=== PATIENT | female | born 1950 | race Caucasian/White ===

== ENCOUNTER → 2016-09-06 | Outpatient (CLI) | payer BC, MEDICARE, OTHER ==
[2016-09-06 12:13] LABS: ALT 51 U/L (9-52); AST 38 U/L (14-36); Alkaline Phosphatase 84 U/L (38-126); Anion Gap 13 mmol/L; Blood Urea Nitrogen 23 mg/dL (7-17); Calcium 10.1 mg/dL (8.4-10.2); Carbon Dioxide 30 mmol/L (22-30); Chloride 102 mmol/L (98-107); Cholesterol 129 mg/dL (<200); Glucose 207 mg/dL (74-99); HDL Cholesterol 37 mg/dL (40-60); Non-African American GFR(MDRD) 58 (>60 ml/min/1.73 sqM); Potassium 5.1 mmol/L (3.5-5.1); Sodium 145 mmol/L (137-145); Triglycerides 154 mg/dL (<150)
== END | disposition home or self-care (01) ==
LOC: LABWHC1 10:43
PROVIDERS: ATTEND Internal Medicine Endocrinology, Diabetes & Metabolism
DX: E11.65 Type 2 diabetes mellitus with hyperglycemia (principal)
CPT/HCPCS: 36415; 80053; 80061; 82043

== ENCOUNTER → 2017-05-30 | Outpatient (CLI) | payer BC, MEDICARE, OTHER ==
[2017-05-30 10:19] LABS: ALT 34 U/L (9-52); AST 22 U/L (14-36); Alkaline Phosphatase 86 U/L (38-126); Anion Gap 12 mmol/L; Blood Urea Nitrogen 21 mg/dL (7-17); Calcium 9.6 mg/dL (8.4-10.2); Carbon Dioxide 25 mmol/L (22-30); Chloride 108 mmol/L (98-107); Cholesterol 134 mg/dL (<200); Glucose 185 mg/dL (74-99); HDL Cholesterol 53 mg/dL (40-60); Non-African American GFR(MDRD) >60 (>60 ml/min/1.73 sqM); Potassium 4.7 mmol/L (3.5-5.1); Sodium 145 mmol/L (137-145); Total Bilirubin 0.3 mg/dL (0.2-1.3); Total Protein 7.8 g/dL (6.3-8.2)
[2017-05-30 17:32] LABS: Urine Creatinine 90.1 mg/dL
== END | disposition home or self-care (01) ==
LOC: LABWHC1 09:32
PROVIDERS: ATTEND Internal Medicine Endocrinology, Diabetes & Metabolism
DX: E11.65 Type 2 diabetes mellitus with hyperglycemia (principal)
CPT/HCPCS: 36415; 80053; 80061; 82043; 82570

== ENCOUNTER → 2018-03-16 | Outpatient (CLI) | payer BC, MEDICARE ==
[2018-03-16 08:39] LABS: Albumin 4.2 g/dL (3.5-5.0); Calcium 9.6 mg/dL (8.4-10.2); Potassium 4.9 mmol/L (3.5-5.1); Total Bilirubin 0.7 mg/dL (0.2-1.3); Total Protein 6.9 g/dL (6.3-8.2)
[2018-03-16 13:17] LABS: Hemoglobin A1C 7.5 % (4.0-6.0)
== END | disposition home or self-care (01) ==
LOC: LABWHC1 06:59
PROVIDERS: ATTEND Internal Medicine Endocrinology, Diabetes & Metabolism
DX: E11.65 Type 2 diabetes mellitus with hyperglycemia (principal)
CPT/HCPCS: 36415; 80053; 80061; 82043; 82570; 83036

== ENCOUNTER → 2018-06-26 | Outpatient (CLI) | payer BC, MEDICARE ==
--- NOTE | 2018-06-26 20:02 | MR ---
EXAMINATION TYPE: MR knee LT wo con DATE OF EXAM: 06/26/2018 COMPARISON: None HISTORY: Left knee swelling, pain, clicking, for several years TECHNIQUE: Multiplanar, multisequence imaging of the left knee is performed without IV contrast. FINDINGS: MEDIAL MENISCUS: There is a radial tear of the posterior horn of the medial meniscus at its free edge . There is slight posterior horn meniscal myxoid degeneration as there is increased signal throughout . Anterior horn is intact. LATERAL MENISCUS: Anterior and posterior horns are intact without tear. CRUCIATE LIGAMENTS: The anterior and posterior cruciate ligaments are intact and unremarkable. COLLATERAL LIGAMENTS: The medial collateral ligament and lateral collateral ligament complex are inta ct and unremarkable. EXTENSOR MECHANISM: Visualized quadriceps and patellar tendons are intact. EFFUSION: There is a small minimally complex suprapatellar joint effusion indicative of synovitis. T here is also a thickened superior plica. POPLITEAL CYST: No popliteal/friend cyst. TRICOMPARTMENT SPACES: There are small tricompartmental marginal osteophytes and mild medial compartm ent joint space narrowing as well as patellofemoral compartment joint space narrowing in keeping with mild to moderate arthrosis. CARTILAGE: There are focal fissures within the trochlea at the medial aspect of both the lateral and medial facets with full-thickness cartilaginous defect of the lateral facet measuring 6 mm. There is thinning and signal heterogeneity of the patellofemoral cartilage and focal fissure with underlying f ocal bone marrow edema of the medial facet. There is full-thickness cartilaginous loss of the weightbearing surface of the medial femoral condyle measuring 1.8 cm with underlying foci of bone marrow edema and the medial femoral condyle. Within th e lateral femoral condyle there is a focal partial-thickness cartilaginous defect measuring 6 mm. Gen eralized thinning and signal heterogeneity is seen of the remainder of the lateral compartment cartil age. BONE MARROW SIGNAL: No focal abnormal marrow signal is appreciated. OTHER: There is a very small degree of prepatellar and infrapatellar subcutaneous soft tissue swelli ng. IMPRESSION: 1. Small radial tear of the posterior horn of the medial meniscus at its free edge with myxoid degene ration of the posterior horn. 2. Gtaa-bh-utglrwtb tricompartmental arthrosis with tricompartmental chondrosis including full-thickn ess cartilaginous defect of the weightbearing surface of the medial femoral condyle measuring 1.8 cm with underlying foci of bone marrow edema/subchondral cystic change. Focal fissuring is seen within t he trochlea and lateral patellar facet with partial thickness cartilaginous defect of the lateral fem oral condyle. 3. Small complex suprapatellar joint effusion indicative of synovitis. Additionally there is a thicke dio superior plica.
== END | disposition home or self-care (01) ==
LOC: RADMRIMAIN 10:08
PROVIDERS: ATTEND Orthopaedic Surgery
DX: S83.242A Other tear of medial meniscus, current injury, left knee, initial encounter (principal); M17.12 Unilateral primary osteoarthritis, left knee; M94.8X8 Other specified disorders of cartilage, other site

== ENCOUNTER 2018-08-19 08:20 | Day surgery (SDC) | payer BC, MEDICARE ==
[2018-08-17 10:43] VITALS: BMI 29.0
--- NOTE | 2018-08-18 16:04 | HP ---
HISTORY AND PHYSICAL DATE OF SURGERY: 08/19/2018 Cindy Us is a 67-year-old patient seen with progressive left knee pain. After having treatment options discussed, she elected to proceed with left knee arthroscopy. Consent regarding the procedure was obtained. PAST MEDICAL HISTORY: 1. Hypertension. 2. Tmc-bmaucin-muugpvkza diabetes. PAST SURGICAL HISTORY: Carpal tunnel release. DAILY MEDICATIONS: 1. Amlodipine. 2. Atenolol. 3. Atorvastatin. 4. Glipizide. 5. Metformin. ALLERGIES: NONE REPORTED. SOCIAL HISTORY: She smokes a half pack of cigarettes daily. PHYSICAL EVALUATION OF THE LEFT KNEE: Her range of motion is 0 to 125 degrees. Tenderness, medial joint line. Positive medial Phill's. Patellar crepitus. Ligaments stable. Hip rotation without pain. Distal neurovascular exam is intact. LEFT KNEE RADIOGRAPHS: Left knee radiographs revealed moderate medial and patellofemoral compartment osteoarthritis. An MRI of the left knee revealed a medial meniscal tear, osteoarthritis and joint effusion. IMPRESSION: Internal derangement of the left knee with medial meniscal tear. PLAN: Left knee arthroscopy with partial meniscectomy and debridement. MMODL / IJN: [id number] /
[~2018-08-19 08:20] MED LIST: DEXAMETHASONE SOD PHOSPHATE 10 MG/ML 1 ML VIAL IV ONE; HYDROmorphone 0.5 MG/0.5 ML SYRINGE IVP PRN; LIDOCAINE 1% 20 ML VIAL (10MG/ML) FOR IV START INTRADERMA PRN; ONDANSETRON 4 MG/2 ML VIAL IVP ONE; SCOPOLAMINE 1.5MG/72HR PATCH TRANSDERM ONE; ceFAZolin IN SWFI 2 GM/20 ML SYRINGE IVP ONE
[2018-08-19] MEDS: LACTATED RINGERS 1,000 ML IV SCH ×2 (08:58→10:14)
[2018-08-19 09:10] LABS: Glucose,Whole Blood 182 mg/dL (75-99)
[2018-08-19] MEDS ORDERED: fentaNYL (PF) 50 MCG/ML 2 ML AMP ONE (10:15)
[2018-08-19] MEDS ORDERED: PROPOFOL 10 MG/ML 20 ML VIAL IV ONE (10:15)
[2018-08-19] MEDS ORDERED: LIDOCAINE 1% INJ 10MG/ML (20 ML MDV) ONE (10:15)
[2018-08-19] MEDS ORDERED: BUPIVACAIN-EPI 0.25%-1:200,000 30 ML VIAL SQ ONE (10:15)
[2018-08-19] MEDS ORDERED: SUCCINYLCHOLINE CHLORIDE 100 MG/5 ML SYR IV ONE (10:15)
[2018-08-19] MEDS ORDERED: KETOROLAC 30 MG/ML 1 ML VIAL ONE (10:15)
[2018-08-19] MEDS ORDERED: MIDAZOLAM 2 MG/2 ML VIAL ONE (10:15)
[2018-08-19] MEDS ORDERED: LACTATED RINGERS 1,000 ML IV ONE (10:46)
[2018-08-19 11:00] VITALS: RESP 16; TEMP 96.9
--- NOTE | 2018-08-19 11:00 | P.OP ---
Date of Procedure: 08/19/18 Preoperative Diagnosis: Internal derangement left knee Postoperative Diagnosis: 1. Medial meniscal tear left knee 2. Grade 3 chondromalacia medial femoral condyle left knee 3. Grade 4 chondromalacia medial tibial plateau left knee 4. Grade 3/4 chondromalacia femoral sulcus left knee 5. Medial plica left knee 6. Reactive synovitis medial, lateral and suprapatellar compartments left knee Procedure(s) Performed: 1. Arthroscopic partial medial meniscectomy left knee 2. Arthroscopic chondroplasty medial femoral condyle left knee 3. Arthroscopic chondroplasty femoral sulcus left knee 4. Arthroscopic resection medial plica left knee 5. Arthroscopic partial synovectomy medial, lateral and suprapatellar compartments left knee Anesthesia: GETA, local Surgeon: Jagdish Edgar Estimated Blood Loss (ml): 5 Pathology: none sent Condition: stable Disposition: PACU Indications for Procedure: 67-year-old patient seen with progressive left knee. After treatment options were discussed, she elected to proceed with arthroscopy. Operative Findings: see description of procedure Description of Procedure: Patient was taken to the operative suite. Patient underwent a general anesthetic by the department of anesthesia. Patient was given preoperative antibiotics. The left lower extremity was placed in a well-padded arthroscopic leg escobar. The left leg was prepped and draped in the normal sterile orthopedic fashion. A lateral parapatellar and suprapatellar incision was made. Trochars were inserted. Arthroscopy was initiated. Suprapatellar pouch revealed diffuse thick reactive synovitis. The patellofemoral joint appeared to articulate congruently. There was grade 3 chondromalacia changes of the femoral sulcus with large osteochondral flap tears.. The scope was guided into the medial gutter. No loose bodies were identified however there was a large medial plica which did seem to impinge along the medial femoral condyle with range of motion. The scope was then guided into the medial compartment. A medial parapatellar incision was made. Trocar inserted followed by probe. There was a small radial tear involving the posterior horn of the medial meniscus. There were grade 3 chondromalacia changes of the medial femoral condyle with some osteochondral flap tears. There were grade 4 chondral moist changes of the medial tibial plateau with 2 distinct areas of exposed bone. There was thick reactive synovitis anteriorly. I performed a partial medial meniscectomy down to stable tissue. I performed a chondroplasty of the medial femoral condyle down to stable tissue. I performed a partial synovectomy decompressing the reactive synovitis anteriorly. The residual meniscus was found to be stable. The residual osteochondral surface of the medial femoral condyle was stable. There was good decompression of the synovitis. Scope and probe were then guided into the intercondylar notch. Cruciates were identified , probed and found to be stable. The scope and probe were then guided into lateral compartment. Lateral meniscus was probed and found to be stable. There were mild grade 1 chondromalacia changes of the lateral femoral condyle with no osteochondral tears present. There was reactive synovitis anteriorly. I introduced a motorized shaver and performed a partial synovectomy decompressing the reactive synovitis a lateral compartment. There was good decompression of synovitis. The scope was in guided back into the suprapatellar compartment. I introduced a motorized shaver into the suprapatellar compartment. I debrided some piecemeal fragments of meniscus I encountered. I performed a chondroplasty of the femoral sulcus down to stable tissue. I performed a partial synovectomy decompressing the reactive synovitis. The residual osteochondral surface was stable however there was areas of grade 3 approaching grade 4 chondromalacia. There was good decompression of the synovitis. Instruments were now removed from the joint. The joint was infiltrated with .25% Marcaine. Steri-Strips were applied to the portal sites. Sterile dressings were applied. The patient was placed into a SADE hose. No tourniquet was utilized. The patient was awakened, transferred to a bed and taken to recovery stable satisfactory condition.
[2018-08-19 11:29] LABS: Glucose,Whole Blood 243 mg/dL (75-99)
[2018-08-19] MEDS ORDERED: HYDROcodone/APAP 5-325MG 1 EACH TAB PO ONE (12:06)
[2018-08-19 12:32] VITALS: BP 128/63; PULSE 59
== END 2018-08-19 12:44 | disposition home or self-care (01) ==
LOC: OR 08:20
PROVIDERS: ATTEND Orthopaedic Surgery
DX: S83.242A Other tear of medial meniscus, current injury, left knee, initial encounter (principal); X58.XXXA Exposure to other specified factors, initial encounter; M94.262 Chondromalacia, left knee; M67.52 Plica syndrome, left knee; M65.862 Other synovitis and tenosynovitis, left lower leg; I10 Essential (primary) hypertension; E78.5 Hyperlipidemia, unspecified; E11.9 Type 2 diabetes mellitus without complications; Z79.84 Long term (current) use of oral hypoglycemic drugs; Z79.899 Other long term (current) drug therapy; F17.210 Nicotine dependence, cigarettes, uncomplicated
CPT/HCPCS: 29881; J2250; J1100; J2405; J2001; J3010; J1885; J0330; J2704; J0690

== ENCOUNTER → 2018-09-22 | Outpatient (CLI) | payer BC, MEDICARE ==
--- NOTE | 2018-09-23 09:54 | MM ---
Reason for exam: screening (asymptomatic). Last mammogram was performed 5 years and 3 months ago. History: Patient is postmenopausal and has history of other cancer at age 67. Took estrogen for 25 years beginning at age 33. Took progesterone for 25 years beginning at age 33. Physical Findings: A clinical breast exam by your physician is recommended on an annual basis and results should be correlated with mammographic findings. MG 3D Screening Mammo W/Cad Bilateral CC and MLO view(s) were taken. Prior study comparison: July 01, 2013, bilateral digital screening mammo w/CAD. January 30, 2009, bilateral diagnostic digital mammog. There are scattered fibroglandular densities. Benign oil cysts anteriorly in the breasts. No significant changes when compared with prior studies. ASSESSMENT: Negative, BI-RAD 1 RECOMMENDATION: Routine screening mammogram of both breasts in 1 year.
== END | disposition home or self-care (01) ==
LOC: RADMAMWWP 08:11
PROVIDERS: ATTEND Family Medicine
DX: Z12.31 Encounter for screening mammogram for malignant neoplasm of breast (principal)
CPT/HCPCS: 77063; 77067

== ENCOUNTER 2018-12-17 21:50 | Observation (INO) | payer BC, MEDICARE ==
[2018-12-17] MEDS ORDERED: SODIUM CHLORIDE 0.9% 1,000 ML IV STA (23:10)
[2018-12-17] MEDS ORDERED: MORPHINE SULFATE 4 MG/ML SYRINGE IV STA (23:10)
--- NOTE | 2018-12-17 23:13 | ED ---
Back Pain HPI - General Chief Complaint: Back Pain/Injury Stated Complaint: Abd pain Time Seen by Provider: 12/17/18 23:10 Source: patient Limitations: no limitations - Related Data Home Medications Medication Instructions Recorded Confirmed Atenolol [Tenormin] 50 mg PO BID 08/17/18 12/17/18 Atorvastatin [Lipitor] 40 mg PO DAILY 08/17/18 12/17/18 amLODIPine BES/OLMESARTAN MED 1 tab PO BID 08/17/18 12/17/18 [amLODIPine BES/OLMESARTAN MED 5-20 mg] glipiZIDE [Glucotrol] 5 mg PO AC-BID 08/17/18 12/17/18 metFORMIN HCL 1,000 mg PO BID 08/17/18 12/17/18 Trulicity(Unknown Dose) 20 units SQ QAM 12/17/18 12/17/18 Allergies Allergy/AdvReac Type Severity Reaction Status Date / Time No Known Allergies Allergy Verified 12/17/18 23:13 Review of Systems ROS Statement: Those systems with pertinent positive or pertinent negative responses have been documented in the HPI. ROS Other: All systems not noted in ROS Statement are negative. Past Medical History Past Medical History: Cancer, Diabetes Mellitus, Hyperlipidemia, Hypertension Additional Past Medical History / Comment(s): BLADDER CANCER-HAD INTRABLADDER CHEMO 09/16/18 History of Any Multi-Drug Resistant Organisms: None Reported Past Surgical History: Hysterectomy, Orthopedic Surgery, Tubal Ligation Additional Past Surgical History / Comment(s): BLADDER CANCER SURGERY. COLONOSCOPY. BILAT CATARACT REMOVAL. LT KNEE SCOPE Past Anesthesia/Blood Transfusion Reactions: No Reported Reaction Past Psychological History: No Psychological Hx Reported Smoking Status: Former smoker Past Alcohol Use History: None Reported Past Drug Use History: None Reported - Past Family History Mother Family Medical History: No Reported History General Exam Limitations: no limitations Course Vital Signs 12/17/18 22:24 Temperature 99.4 F Pulse Rate 77 Respiratory 18 Rate Blood Pressure 147/78 O2 Sat by Pulse 97 Oximetry Medical Decision Making - Lab Data Result diagrams: 12/17/18 23:19 12/17/18 23:19 Lab Results 12/17/18 12/17/18 12/17/18 Range/Units 23:19 23:19 23:19 WBC (3.8-10.6) k/uL RBC (3.80-5.40) m/uL Hgb (11.4-16.0) gm/dL Hct (34.0-46.0) % MCV (80.0-100.0) fL MCH (25.0-35.0) pg MCHC (31.0-37.0) g/dL RDW (11.5-15.5) % Plt Count (150-450) k/uL Neutrophils % % Lymphocytes % % Monocytes % % Eosinophils % % Basophils % % Neutrophils # (1.3-7.7) k/uL Lymphocytes # (1.0-4.8) k/uL Monocytes # (0-1.0) k/uL Eosinophils # (0-0.7) k/uL Basophils # (0-0.2) k/uL Hypochromasia Anisocytosis Microcytosis PT 9.8 (9.0-12.0) sec INR 0.9 (<1.2) APTT 22.5 (22.0-30.0) sec Sodium (137-145) mmol/L Potassium (3.5-5.1) mmol/L Chloride (98-107) mmol/L Carbon Dioxide (22-30) mmol/L Anion Gap mmol/L BUN (7-17) mg/dL Creatinine (0.52-1.04) mg/dL Est GFR (CKD-EPI)AfAm (>60 ml/min/1.73 sqM) Est GFR (CKD-EPI)NonAf (>60 ml/min/1.73 sqM) Glucose (74-99) mg/dL Plasma Lactic Acid Guillermo 1.6 (0.7-2.0) mmol/L Calcium (8.4-10.2) mg/dL Total Bilirubin (0.2-1.3) mg/dL AST (14-36) U/L ALT (9-52) U/L Alkaline Phosphatase (38-126) U/L Creatine Kinase (30-135) U/L Troponin I <0.012 (0.000-0.034) ng/mL Total Protein (6.3-8.2) g/dL Albumin (3.5-5.0) g/dL Amylase (30-110) U/L Lipase (23-300) U/L 12/17/18 12/17/18 Range/Units 23:19 23:19 WBC 12.9 H (3.8-10.6) k/uL RBC 4.71 (3.80-5.40) m/uL Hgb 10.3 L (11.4-16.0) gm/dL Hct 33.9 L (34.0-46.0) % MCV 71.9 L (80.0-100.0) fL MCH 21.8 L (25.0-35.0) pg MCHC 30.3 L (31.0-37.0) g/dL RDW 18.4 H (11.5-15.5) % Plt Count 282 (150-450) k/uL Neutrophils % 77 % Lymphocytes % 16 % Monocytes % 5 % Eosinophils % 1 % Basophils % 0 % Neutrophils # 9.9 H (1.3-7.7) k/uL Lymphocytes # 2.0 (1.0-4.8) k/uL Monocytes # 0.6 (0-1.0) k/uL Eosinophils # 0.2 (0-0.7) k/uL Basophils # 0.1 (0-0.2) k/uL Hypochromasia Moderate Anisocytosis Slight Microcytosis Marked PT (9.0-12.0) sec INR (<1.2) APTT (22.0-30.0) sec Sodium 138 (137-145) mmol/L Potassium 4.7 (3.5-5.1) mmol/L Chloride 105 (98-107) mmol/L Carbon Dioxide 24 (22-30) mmol/L Anion Gap 9 mmol/L BUN 21 H (7-17) mg/dL Creatinine 0.85 (0.52-1.04) mg/dL Est GFR (CKD-EPI)AfAm 82 (>60 ml/min/1.73 sqM) Est GFR (CKD-EPI)NonAf 71 (>60 ml/min/1.73 sqM) Glucose 128 H (74-99) mg/dL Plasma Lactic Acid Guillermo (0.7-2.0) mmol/L Calcium 10.2 (8.4-10.2) mg/dL Total Bilirubin 0.5 (0.2-1.3) mg/dL AST 18 (14-36) U/L ALT 22 (9-52) U/L Alkaline Phosphatase 102 (38-126) U/L Creatine Kinase 55 (30-135) U/L Troponin I (0.000-0.034) ng/mL Total Protein 7.6 (6.3-8.2) g/dL Albumin 4.4 (3.5-5.0) g/dL Amylase 62 (30-110) U/L Lipase 418 H (23-300) U/L Disposition Clinical Impression: Chest pain Disposition: HOME SELF-CARE Condition: Good Is patient prescribed a controlled substance at d/c from ED?: No Referrals: Vishal Nixon DO [Primary Care Provider] - 1-2 days
[2018-12-17 23:54] LABS: Anisocytosis Slight; Basophils # (A) 0.1 k/uL (0-0.2); Basophils % (A) 0 %; Eosinophils # (A) 0.2 k/uL (0-0.7); Eosinophils % (A) 1 %; HCT 33.9 % (34.0-46.0); HGB 10.3 gm/dL (11.4-16.0); Hypochromasia Moderate; Lymphocytes % (A) 16 %; MCH 21.8 pg (25.0-35.0); MCHC 30.3 g/dL (31.0-37.0); MCV 71.9 fL (80.0-100.0); Mean Platelet Volume 8.3; Microcytosis Marked; Monocytes # (A) 0.6 k/uL (0-1.0); Monocytes % (A) 5 %; Neutrophils # (A) 9.9 k/uL (1.3-7.7); Neutrophils % (A) 77 %; Platelet Count 282 k/uL (150-450); RBC 4.71 m/uL (3.80-5.40); RDW 18.4 % (11.5-15.5); WBC 12.9 k/uL (3.8-10.6)
[2018-12-17 23:57] LABS: INR 0.9 (<1.2); Partial Thromboplastin Time 22.5 sec (22.0-30.0); Prothrombin Time 9.8 sec (9.0-12.0)
[2018-12-17 23:59] LABS: Albumin 4.4 g/dL (3.5-5.0); Calcium 10.2 mg/dL (8.4-10.2); Potassium 4.7 mmol/L (3.5-5.1); Total Bilirubin 0.5 mg/dL (0.2-1.3); Total Protein 7.6 g/dL (6.3-8.2)
--- NOTE | 2018-12-18 00:41 | CT ---
EXAM: CT Abdomen and Pelvis With Intravenous Contrast CLINICAL HISTORY: ITS.REASON CT Reason: Pain TECHNIQUE: Axial computed tomography images of the abdomen and pelvis with intravenous contrast. CTDI is 13 mGy and DLP is 1531.8 mGy-cm. This CT exam was performed using one or more of the following dose reduction techniques: automated exposure control, adjustment of the mA and/or kV according to patient size, and/or use of iterative reconstruction technique. COMPARISON: No relevant prior studies available. FINDINGS: Lung bases: 7 mm sub-solid pure groundglass nodule in the left lung base (series 6 image 51). ABDOMEN: Liver: Sub-centimeter calcification in the left hepatic lobe may represent a granuloma. Gallbladder and bile ducts: Unremarkable. No calcified stones. No ductal dilation. Pancreas: Unremarkable. No evidence of mass. No ductal dilation. Spleen: Unremarkable. No splenomegaly. Adrenals: Unremarkable. No mass. Kidneys and ureters: 4 mm cyst in the left kidney. No hydronephrosis. Stomach and bowel: 2.1 x 1.7 cm lipoma in the wall of the distal stomach. No obstruction. No mucosal thickening. PELVIS: Appendix: Nonvisualization of the appendix. Bladder: Unremarkable. No evidence of mass. Reproductive: Unremarkable as visualized. ABDOMEN and PELVIS: Intraperitoneal space: Unremarkable. No free air. No significant fluid collection. Bones/joints: No acute fracture. Soft tissues: Unremarkable. Vasculature: Unremarkable. No abdominal aortic aneurysm. Lymph nodes: Unremarkable. No enlarged lymph nodes. IMPRESSION: 1. 7 mm sub-solid pure groundglass nodule in the left lung base (series 6 image 51). ACR White Paper guidelines (Rupalihon, et al. Radiology 2017; 284(1):228-43) recommend follow-up chest CT at 6-12 months to confirm persistence. If stable, chest CT every 2 years until 5 years. 2. 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
--- NOTE | 2018-12-18 01:02 | CT ---
EXAM: CT Angiography Chest With Intravenous Contrast CLINICAL HISTORY: ITS.REASON CT Reason: Pain TECHNIQUE: Axial computed tomographic angiography images of the chest with intravenous contrast using pulmonary embolism protocol. CTDI is mGy and DLP is 803.7 mGy-cm. This CT exam was performed using one or more of the following dose reduction techniques: automated exposure control, adjustment of the mA and/or kV according to patient size, and/or use of iterative reconstruction technique. MIP reconstructed images were created and reviewed. COMPARISON: No relevant prior studies available. FINDINGS: Pulmonary arteries: Unremarkable. No evidence of pulmonary embolism. Aorta: No acute findings. No thoracic aortic aneurysm. Lungs: 7 mm sub-solid pure ground glass nodule in the left lower lobe (series 406 image 83). Pleural space: Unremarkable. No significant effusion. No pneumothorax. Heart: Unremarkable. No cardiomegaly. No significant pericardial effusion. No evidence of RV dysfunction. Thyroid: Right thyroid nodule measuring up to approximately 9 mm. Bones/joints: No acute fracture. No dislocation. Soft tissues: Unremarkable. Lymph nodes: Unremarkable. No enlarged lymph nodes. IMPRESSION: 1. No evidence of pulmonary embolism. 2. Right thyroid nodule measuring up to approximately 9 mm. Further characterization with ultrasound recommended. 3. 7 mm sub-solid pure ground glass nodule in the left lower lobe (series 406 image 83). ACR White Paper guidelines (MacMahon, et al. Radiology 2017; 284(1):228-43) recommend follow-up chest CT at 6-12 months to confirm persistence. If stable, chest CT every 2 years until 5 years.
[2018-12-18] MEDS ORDERED: NITROGLYCERIN SL TABS 0.4 MG TAB SUBLINGUAL PRN (01:07)
[2018-12-18] MEDS ORDERED: HEPARIN SODIUM,PORCINE 5,000 UNIT/ML 1 ML VIAL IV PRN (01:07)
[2018-12-18] MEDS: HEPARIN SODIUM,PORCINE 5,000 UNIT/ML 1 ML VIAL IV ONE ×2 (01:36→08:26)
[2018-12-18] MEDS: MORPHINE SULFATE 4 MG/ML SYRINGE IV PRN ×5 (01:37→20:44)
[2018-12-18] MEDS: HEPARIN SOD,PORK IN 0.45% NACL 25,000 UNIT in 0.45% NACL 1 250ML.BAG IV SCH ×2 (01:38→20:45)
[2018-12-18 05:34] LABS: Mean Platelet Volume 7.6; Platelet Count 207 k/uL (150-450)
[2018-12-18] MEDS ORDERED: SODIUM CHLORIDE 0.9% 500 ML 500 ML IV SCH (07:45)
[2018-12-18] MEDS ORDERED: METOPROLOL TARTRATE 25 MG TAB PO SCH (09:00)
[2018-12-18] MEDS ORDERED: ATORVASTATIN 80 MG TAB PO SCH (09:00)
--- NOTE | 2018-12-18 09:14 | P.CRDCN ---
History of Present Illness Consult date: 12/18/18 Chief complaint: Chest pain History of present illness: This is a pleasant 68-year-old female patient with a past medical history significant for diabetes and hypertension presented to the emergency room complaining of chest discomfort. The chest discomfort started about 3 days ago, it's mainly located on the left side of the chest as well as the left arm. The patient described the pain as a sharp kind of discomfort. Does not radiate to the back. No associated symptoms of shortness of breath, dizziness, heart racing, or syncope. The chest discomfort is intermittent but follow-up last 24 hours it has been constant and the patient currently is experiencing chest discomfort. The patient clearly stated that the chest discomfort is mainly comes was she takes a deep breath. As a matter of fact when I examined the patient it seems that the chest discomfort is reproducible on examination. The EKG showed sinus rhythm with nonspecific changes. The cardiac enzymes were checked and came in to be unremarkable. The computed tomography scan of the chest showed no evidence of PE but it showed thyroid nodules. On examination also the patient was noted to have a systolic murmur at the right upper sternal border. Past Medical History Past Medical History: Cancer, Diabetes Mellitus, Hyperlipidemia, Hypertension Additional Past Medical History / Comment(s): BLADDER CANCER-HAD INTRABLADDER CHEMO 09/16/18 History of Any Multi-Drug Resistant Organisms: None Reported Past Surgical History: Hysterectomy, Orthopedic Surgery, Tubal Ligation Additional Past Surgical History / Comment(s): BLADDER CANCER SURGERY. COLONOSCOPY. BILAT CATARACT REMOVAL. LT KNEE SCOPE Past Anesthesia/Blood Transfusion Reactions: No Reported Reaction Past Psychological History: No Psychological Hx Reported Smoking Status: Former smoker Past Alcohol Use History: None Reported Past Drug Use History: None Reported - Past Family History Mother Family Medical History: No Reported History Medications and Allergies Home Medications Medication Instructions Recorded Confirmed Type Atenolol [Tenormin] 50 mg PO BID 08/17/18 12/17/18 History Atorvastatin [Lipitor] 40 mg PO DAILY 08/17/18 12/17/18 History amLODIPine BES/OLMESARTAN MED 1 tab PO BID 08/17/18 12/17/18 History [amLODIPine BES/OLMESARTAN MED 5-20 mg] glipiZIDE [Glucotrol] 5 mg PO AC-BID 08/17/18 12/17/18 History metFORMIN HCL 1,000 mg PO BID 08/17/18 12/17/18 History Trulicity(Unknown Dose) 20 units SQ QAM 12/17/18 12/17/18 History Allergies Allergy/AdvReac Type Severity Reaction Status Date / Time No Known Allergies Allergy Verified 12/17/18 23:13 Physical Exam Vitals: Vital Signs Temp Pulse Resp BP Pulse Ox 12/18/18 09:00 61 18 113/58 96 12/18/18 07:36 62 15 120/57 95 12/18/18 05:10 116/62 93 L 12/18/18 04:40 111/56 93 L 12/18/18 04:20 100/54 94 L 12/18/18 04:10 66 16 100/54 94 L 12/18/18 03:40 103/51 94 L 12/18/18 03:10 100/51 95 12/18/18 02:40 111/57 95 12/18/18 02:10 139/64 98 12/18/18 01:50 105/58 93 L 12/18/18 00:50 119/65 96 12/18/18 00:49 97 12/17/18 22:24 99.4 F 77 18 147/78 97 Intake and Output 12/17/18 12/18/18 12/18/18 22:59 06:59 14:59 Intake Total 64.453 Balance 64.453 Intake: Intake, IV Titration 64.453 Amount Heparin Sod,Pork in 0.45% 64.453 NaCl 25,000 unit In 0.45 % NaCl 1 250ml.bag @ 12 UNITS/KG/HR 9.525 mls/hr IV .Q24H [facility] Rx#: [id number] Other: Weight 79.379 kg - Constitutional General appearance: no acute distress - Respiratory Respiratory: bilateral: CTA - Cardiovascular Rhythm: regular Heart sounds: normal: S1, S2 Abnormal Heart Sounds: systolic murmur Results 12/18/18 05:21 12/17/18 23:19 Cardiac Enzymes 12/17/18 12/17/18 12/18/18 Range/Units 23:19 23:19 05:21 AST 18 (14-36) U/L Troponin I <0.012 <0.012 (0.000-0.034) ng/mL Coagulation 12/17/18 12/18/18 Range/Units 23:19 07:09 PT 9.8 (9.0-12.0) sec APTT 22.5 37.8 H (22.0-30.0) sec CBC 12/17/18 12/18/18 Range/Units 23: 05:21 WBC 12.9 H (3.8-10.6) k/uL RBC 4.71 (3.80-5.40) m/uL Hgb 10.3 L (11.4-16.0) gm/dL Hct 33.9 L (34.0-46.0) % Plt Count 282 207 (150-450) k/uL Comprehensive Metabolic Panel 12/17/18 Range/Units 23:19 Sodium 138 (137-145) mmol/L Potassium 4.7 (3.5-5.1) mmol/L Chloride 105 (98-107) mmol/L Carbon Dioxide 24 (22-30) mmol/L BUN 21 H (7-17) mg/dL Creatinine 0.85 (0.52-1.04) mg/dL Glucose 128 H (74-99) mg/dL Calcium 10.2 (8.4-10.2) mg/dL AST 18 (14-36) U/L ALT 22 (9-52) U/L Alkaline Phosphatase 102 (38-126) U/L Total Protein 7.6 (6.3-8.2) g/dL Albumin 4.4 (3.5-5.0) g/dL Current Medications Generic Name Dose Route Start Last Admin Trade Name Freq PRN Reason Stop Dose Admin Aspirin 325 mg 12/19/18 09:00 Aspirin PO DAILY [facility] Atorvastatin Calcium 80 mg 12/18/18 09:00 Lipitor PO DAILY [facility] Heparin Sodium (Porcine) 0 unit 12/18/18 01:07 Heparin IV Q6HR PRN Low PTT Protocol Heparin Sodium/Sodium Chloride 250 mls @ 9.525 mls/hr 12/18/18 01:15 12/18/18 08:24 25,000 unit/ Sodium Chloride IV 15 units/kg/hr .Q24H [facility] 11.907 mls/hr Titration Protocol 12 UNITS/KG/HR Sodium Chloride 500 mls @ 20 mls/hr 12/18/18 07:45 12/18/18 07:35 Saline 0.9% IV 20 mls/hr .Q24H [facility] Administration Metoprolol Tartrate 25 mg 12/18/18 09:00 Lopressor PO BID [facility] Morphine Sulfate 4 mg 12/18/18 01:07 12/18/18 07:33 Morphine Sulfate (Inj) IV 4 mg Q4HR PRN Administration Chest Pain Nitroglycerin 0.4 mg 12/18/18 01:07 Nitrostat SUBLINGUAL Q5M PRN Chest Pain Intake and Output 12/17/18 12/18/18 12/18/18 22:59 06:59 14:59 Intake Total 64.453 Balance 64.453 Intake: Intake, IV Titration 64.453 Amount Heparin Sod,Pork in 0.45% 64.453 NaCl 25,000 unit In 0.45 % NaCl 1 250ml.bag @ 12 UNITS/KG/HR 9.525 mls/hr IV .Q24H [facility] Rx#: [id number] Other: Weight 79.379 kg 12/18/18 05:21 12/17/18 23:19 Assessment and Plan Assessment: Assessment #1 atypical chest discomfort/pleuritic chest discomfort #2 multiple risk factors including diabetes, and hypertension Plan #1 acute coronary event was ruled out #2 the chest discomfort is likely to be noncardiac giving the nature of it as well as a negative workup #3 PE was ruled out by computed tomography scan of the chest #4 I will obtain an echocardiogram was Doppler #5 follow-up with the patient Thank you for allowing us participate in her care
[2018-12-18] MEDS ORDERED: metFORMIN 500 MG TAB PO STA (09:45)
[2018-12-18] MEDS ORDERED: glipiZIDE 5 MG TAB PO STA (09:45)
[2018-12-18] MEDS ORDERED: KETOROLAC 30 MG/ML 1 ML VIAL IVP PRN (16:12)
--- NOTE | 2018-12-18 16:21 | P.HPIM ---
History of Present Illness Patient is a pleasant 68-year-old female came in with complaints of chest pain predominantly in the back radiating to the front on the left side of the chest under the breast area constant pain sharp in nature 8/10 in severity nonrad iating. Not associated with nausea vomiting denied any lightheadedness shortness of breath dizziness. Her chest pain worsens with chest wall movement and worse and certain movements. It appears to have muscles, chest pain probably coming from the degenerative disc disease of the cervical or thoracic spine. I'm opting any x-rays of the cervical and thoracic spine patient was started on a nonsteroidal anti-inflammatories. Patient was ordered by cardiology troponins are negative EKG is negative patient had a CAT scan to rule out pulmonary embolism which did not show any pulmonary embolism but did have a small nodule which need to be followed as an outpatient in 6 months with a repeat CAT scan. Patient denied any fever chills cough there is no pneumonia on chest x-ray. Patient the chest pain has pleuritic competent. Review of Systems REVIEW OF SYSTEMS: CONSTITUTIONAL: No fever, no malaise, no fatigue. HEENT: No recent visual problems or hearing problems. Denied any sore throat. CARDIOVASCULAR: No orthopnea, PND, no palpitations, no syncope. PULMONARY: No shortness of breath, no cough, no hemoptysis. GASTROINTESTINAL: No diarrhea, no nausea, no vomiting, no abdominal pain. NEUROLOGICAL: No headaches, no weakness, no numbness. HEMATOLOGICAL: Denies any bleeding or petechiae. GENITOURINARY: Denies any burning micturition, frequency, or urgency. MUSCULOSKELETAL/RHEUMATOLOGICAL: Denies any joint pain, swelling, or any muscle pain. ENDOCRINE: Denies any polyuria or polydipsia. The rest of the 14-point review of systems is negative. Past Medical History Past Medical History: Cancer, Diabetes Mellitus, Hyperlipidemia, Hypertension Additional Past Medical History / Comment(s): BLADDER CANCER-HAD INTRABLADDER CHEMO 09/16/18 History of Any Multi-Drug Resistant Organisms: None Reported Past Surgical History: Hysterectomy, Orthopedic Surgery, Tubal Ligation Additional Past Surgical History / Comment(s): BLADDER CANCER SURGERY. COLONOSCOPY. BILAT CATARACT REMOVAL. LT KNEE SCOPE Past Anesthesia/Blood Transfusion Reactions: No Reported Reaction Past Psychological History: No Psychological Hx Reported Smoking Status: Former smoker Past Alcohol Use History: None Reported Past Drug Use History: None Reported - Past Family History Mother Family Medical History: No Reported History Medications and Allergies Home Medications Medication Instructions Recorded Confirmed Type Atenolol [Tenormin] 50 mg PO BID 08/17/18 12/17/18 History Atorvastatin [Lipitor] 40 mg PO DAILY 08/17/18 12/17/18 History amLODIPine BES/OLMESARTAN MED 1 tab PO BID 08/17/18 12/17/18 History [amLODIPine BES/OLMESARTAN MED 5-20 mg] glipiZIDE [Glucotrol] 5 mg PO AC-BID 08/17/18 12/17/18 History metFORMIN HCL 1,000 mg PO BID 08/17/18 12/17/18 History Insulin Degludec [Tresiba 20 units SQ DAILY 12/18/18 12/18/18 History Flextouch U-100] Allergies Allergy/AdvReac Type Severity Reaction Status Date / Time No Known Allergies Allergy Verified 12/17/18 23:13 Physical Exam Vitals: Vital Signs Temp Pulse Resp BP Pulse Ox 12/18/18 13:33 97.5 F L 64 16 138/79 95 12/18/18 11:00 97.8 F 68 16 117/56 94 L 12/18/18 09:00 61 18 113/58 96 12/18/18 07:36 62 15 120/57 95 12/18/18 05:10 116/62 93 L 12/18/18 04:40 111/56 93 L 12/18/18 04:20 100/54 94 L 12/18/18 04:10 66 16 100/54 94 L 12/18/18 03:40 103/51 94 L 12/18/18 03:10 100/51 95 12/18/18 02:40 111/57 95 12/18/18 02:10 139/64 98 12/18/18 01:50 105/58 93 L 12/18/18 00:50 119/65 96 12/18/18 00:49 97 12/17/18 22:24 99.4 F 77 18 147/78 97 Intake and Output 12/18/18 12/18/18 12/18/18 06:59 14:59 22:59 Intake Total 64.453 Balance 64.453 Intake: Intake, IV Titration 64.453 Amount Heparin Sod,Pork in 0.45% 64.453 NaCl 25,000 unit In 0.45 % NaCl 1 250ml.bag @ 12 UNITS/KG/HR 9.525 mls/hr IV .Q24H [facility] Rx#: [id number] PHYSICAL EXAMINATION: GENERAL: The patient is alert and oriented x3, not in any acute distress. Well developed, well nourished. HEENT: Pupils are round and equally reacting to light. EOMI. No scleral icterus. No conjunctival pallor. Normocephalic, atraumatic. No pharyngeal erythema. No thyromegaly. CARDIOVASCULAR: S1 and S2 present. No murmurs, rubs, or gallops. PULMONARY: Chest is clear to auscultation, no wheezing or crackles. ABDOMEN: Soft, nontender, nondistended, normoactive bowel sounds. No palpable organomegaly. MUSCULOSKELETAL: No joint swelling or deformity. EXTREMITIES: No cyanosis, clubbing, or pedal edema. NEUROLOGICAL: Gross neurological examination did not reveal any focal deficits. SKIN: No rashes. Results CBC & Chem 7: 12/18/18 05:21 12/17/18 23:19 Labs: Abnormal Lab Results - Last 24 Hours (Table) 12/17/18 12/17/18 12/18/18 Range/Units 23:19 23:19 07:09 WBC 12.9 H (3.8-10.6) k/uL Hgb 10.3 L (11.4-16.0) gm/dL Hct 33.9 L (34.0-46.0) % MCV 71.9 L (80.0-100.0) fL MCH 21.8 L (25.0-35.0) pg MCHC 30.3 L (31.0-37.0) g/dL RDW 18.4 H (11.5-15.5) % Neutrophils # 9.9 H (1.3-7.7) k/uL APTT 37.8 H (22.0-30.0) sec BUN 21 H (7-17) mg/dL Glucose 128 H (74-99) mg/dL Lipase 418 H (23-300) U/L 12/18/18 Range/Units 14:30 WBC (3.8-10.6) k/uL Hgb (11.4-16.0) gm/dL Hct (34.0-46.0) % MCV (80.0-100.0) fL MCH (25.0-35.0) pg MCHC (31.0-37.0) g/dL RDW (11.5-15.5) % Neutrophils # (1.3-7.7) k/uL APTT 60.3 H (22.0-30.0) sec BUN (7-17) mg/dL Glucose (74-99) mg/dL Lipase (23-300) U/L Assessment and Plan Plan: - chest pain appears to be musculoskeletal related to back pain. Ruled out acute coronary syndromes unstable angina. Further cardiac workup as per cardiology. -Thyroid nodule will obtain TSH further workup for thyroid nodule, done as an outpatient -Pulmonary nodule which need to be followed in 6 months with a repeat CAT scan and make sure the size remains stable - type 2 diabetes mellitus patient will be resumed on her home regimen except for metformin -Hyperlipidemia -Hypertension
[2018-12-18] MEDS: glipiZIDE 5 MG TAB PO SCH (17:30)
--- NOTE | 2018-12-18 20:08 | XR ---
EXAMINATION TYPE: XR cervical spine w flex/ext, 7 views XR thoracic spine 3 views DATE OF EXAM: 12/18/2018 COMPARISON: NONE HISTORY: 68-year-old female with upper back pain for 3 days FINDINGS: Cervical spine: No predental space widening or prevertebral soft tissue swelling. Mild degenerative disc disease with endplate spondylosis C4-C7 levels. Scattered facet and uncovertebral joint degenerative change. Ther e is normal alignment of the cervical spine without evidence for dynamic subluxation on flexion-exten destinee views. On the right, there is mild bony neuroforaminal narrowing at C5-C6 and mild on the left a t C4-C5 and C7-T1. Normal odontoid view. Thoracic spine: 12 rib-bearing thoracic vertebral bodies. There is osteopenia. Gentle dextroconvex curvature centered along the lower third thoracic spine. Moderate endplate spondylosis with disc height loss and endpla te sclerosis and spurring involving the mid thoracic spine. Vertebral body heights are preserved and alignment is maintained. IMPRESSION: 1. Cervical spine: Mild spondylotic change. No spondylolisthesis or dynamic subluxation with flexion- extension. 2. Thoracic spine: Moderate endplate spondylosis midthoracic spine. No vertebral compression collapse or malalignment.
[2018-12-18 20:26] LABS: Glucose,Whole Blood 246 mg/dL (75-99)
[2018-12-18] MEDS: FAMOTIDINE 20 MG TAB PO SCH (20:29)
[2018-12-18] MEDS: ATENOLOL 50 MG TAB PO SCH (20:29)
[2018-12-19] MEDS: MORPHINE SULFATE 4 MG/ML SYRINGE IV PRN ×3 (00:40→09:40)
[2018-12-19 06:55] LABS: Glucose,Whole Blood 143 mg/dL (75-99)
[2018-12-19 07:10] LABS: Mean Platelet Volume 8.5; Platelet Count 208 k/uL (150-450)
[2018-12-19 07:20] LABS: Cholesterol 86 mg/dL (<200); HDL Cholesterol 35 mg/dL (40-60); LDL Cholesterol,Calculated 31 mg/dL (0-99); Triglycerides 99 mg/dL (<150)
--- NOTE | 2018-12-19 08:27 | ECHOF ---
Referral Reason: MEASUREMENTS -------- HEIGHT: 170.2 cm WEIGHT: 83.9 kg BP: RVIDd: 2.8 cm (< 3.3) IVSd: 1.2 cm (0.6 - 1.1) LVIDd: 4.5 cm (3.9 - 5.3) LVPWd: 1.6 cm (0.6 - 1.1) IVSs: 2.1 cm LVIDs: 1.5 cm LVPWs: 2.4 cm LAESV Index (A-L): 31.47 ml/m Ao Diam: 2.6 cm (2.0 - 3.7) AV Cusp: 1.6 cm (1.5 - 2.6) LA Diam: 4.1 cm (2.7 - 3.8) MV EXCURSION: 16.659 mm (> 18.000) MV EF SLOPE: 120 mm/s (70 - 150) EPSS: 0.4 cm MV E Nabil: 1.22 m/s MV DecT: 309 ms MV A Nabil: 0.79 m/s MV E/A Ratio: 1.54 AV maxP.56 mmHg AV meanP.96 mmHg RAP: 5.00 mmHg RVSP: 28.15 mmHg FINDINGS -------- Sinus rhythm. This was a technically good study. The left ventricular size is normal. There is moderate concentric left ventricular hypertrophy. O verall left ventricular systolic function is normal with, an EF between 60 - 65 %. The right ventricle is normal in size. LA is midly dilated 29-33ml/m2. The right atrial size is normal. Interatrial and interventricular septum intact. The aortic valve is trileaflet and appears structurally normal. Peak/mean gradient across the Aorti c Valve is 16.56mmHg / 9.96mmHg. The mitral valve leaflets are mildly thickened. Mild mitral regurgitation is present. Mild tricuspid regurgitation present. The right ventricular systolic pressure, as measured by Doppl er, is 28.15mmHg. There is no pulmonic regurgitation present. The aortic root size is normal. Normal inferior vena cava with normal inspiratory collapse consistent with estimated right atrial pre ssure of 5 mmHg. There is no pericardial effusion. CONCLUSIONS -------- 1. Sinus rhythm. 2. This was a technically good study. 3. The left ventricular size is normal. 4. There is moderate concentric left ventricular hypertrophy. 5. Overall left ventricular systolic function is normal with, an EF between 60 - 65 %. 6. The right ventricle is normal in size. 7. LA is midly dilated 29-33ml/m2. 8. The right atrial size is normal. 9. Interatrial and interventricular septum intact. 10. The aortic valve is trileaflet and appears structurally normal. 11. Peak/mean gradient across the Aortic Valve is 16.56mmHg / 9.96mmHg. 12. The mitral valve leaflets are mildly thickened. 13. Mild mitral regurgitation is present. 14. Mild tricuspid regurgitation present. 15. The right ventricular systolic pressure, as measured by Doppler, is 28.15mmHg. 16. There is no pulmonic regurgitation present. 17. The aortic root size is normal. 18. Normal inferior vena cava with normal inspiratory collapse consistent with estimated right atrial pressure of 5 mmHg. 19. There is no pericardial effusion. [employer]: Kathrin Howe RDCS
[2018-12-19] MEDS: ATENOLOL 50 MG TAB PO SCH (08:40)
[2018-12-19] MEDS: FAMOTIDINE 20 MG TAB PO SCH (08:40)
[2018-12-19] MEDS: glipiZIDE 5 MG TAB PO SCH (08:41)
[2018-12-19] MEDS ORDERED: INSULIN DETEMIR (LEVEMIR) 100 UNIT/ML SYR SQ SCH (09:00)
[2018-12-19] MEDS ORDERED: ASPIRIN 325 MG TAB PO SCH (09:00)
[2018-12-19] MEDS ORDERED: ATORVASTATIN 40 MG TAB PO SCH (09:00)
--- NOTE | 2018-12-19 09:51 | P.PN ---
Subjective Progress Note Date: 12/19/18 Principal diagnosis: Atypical chest pain This is a pleasant 68-year-old female patient with a past medical history significant for diabetes and hypertension presented to the emergency room complaining of chest discomfort. The chest discomfort started about 3 days ago, it's mainly located on the left side of the chest as well as the left arm. The patient described the pain as a sharp kind of discomfort. Does not radiate to the back. No associated symptoms of shortness of breath, dizziness, heart racing, or syncope. The chest discomfort is intermittent but follow-up last 24 hours it has been constant and the patient currently is experiencing chest discomfort. The patient clearly stated that the chest discomfort is mainly comes was she takes a deep breath. As a matter of fact when I examined the patient it seems that the chest discomfort is reproducible on examination. The EKG showed sinus rhythm with nonspecific changes. The cardiac enzymes were ch ecked and came in to be unremarkable. The computed tomography scan of the chest showed no evidence of PE but it showed thyroid nodules. On examination also the patient was noted to have a systolic murmur at the right upper sternal border. On follow-up with the patient today, 12/19/2018, she continues to have reproducible chest discomfort and a chest discomfort with deep breath. I do feel that her symptoms are related to musculoskeletal pain. The echocardiogram revealed normal LV function with mild aortic stenosis. Objective - Vital Signs Vital signs: Vital Signs Temp 98.2 F 12/19/18 08:00 Pulse 64 12/19/18 08:00 Resp 16 12/19/18 08:00 BP 128/68 12/19/18 08:00 Pulse Ox 94 L 12/19/18 08:00 Intake & Output 12/18/18 12/19/18 12/19/18 18:59 06:59 18:59 Intake Total 64.453 147.051 Balance 64.453 147.051 Intake: Intake, IV Titration 64.453 147.051 Amount Heparin Sod,Pork in 0.45% 64.453 147.051 NaCl 25,000 unit In 0.45 % NaCl 1 250ml.bag @ 12 UNITS/KG/HR 9.525 mls/hr IV .Q24H [facility] Rx#: [id number] Other: Voiding Method Toilet Toilet Toilet # Voids 1 - Constitutional General appearance: Present: no acute distress - Respiratory Respiratory: bilateral: CTA - Cardiovascular Rhythm: regular Heart sounds: normal: S1, S2 Abnormal Heart Sounds: Present: systolic murmur - Labs CBC & Chem 7: 12/19/18 05:31 12/17/18 23:19 Labs: Abnormal Lab Results - Last 24 Hours (Table) 12/18/18 12/18/18 12/19/18 Range/Units 14:30 20:12 05:31 APTT 60.3 H 47.2 H (22.0-30.0) sec POC Glucose (mg/dL) 246 H (75-99) mg/dL HDL Cholesterol (40-60) mg/dL 12/19/18 12/19/18 Range/Units 05:31 06:53 APTT (22.0-30.0) sec POC Glucose (mg/dL) 143 H (75-99) mg/dL HDL Cholesterol 35 L (40-60) mg/dL Assessment and Plan Assessment: Assessment #1 atypical chest discomfort/pleuritic chest discomfort #2 multiple risk factors including diabetes, and hypertension Plan #1 acute coronary event was ruled out #2 the chest discomfort is likely to be noncardiac giving the nature of it as well as a negative workup #3 PE was ruled out by computed tomography scan of the chest #4 the echo revealed normal LV function with mild aortic stenosis. #5 the patient need to have a stress test probably as an outpatient.
[2018-12-19 11:52] LABS: Glucose,Whole Blood 211 mg/dL (75-99)
[2018-12-19 12:04] VITALS: BP 104/63; PULSE 55; RESP 18; TEMP 98.1
--- NOTE | 2018-12-19 14:09 | P.DS ---
Providers Date of admission: 12/18/18 01:07 Attending physician: Aleah Dean Consults: 12/18/18 01:07 Consult Physician Urgent Consulting Provider: Carlos Florian Consult Reason/Comments: cp Do you want consulting provider notified?: Yes Primary care physician: Vishal Nixon [facility] Course: 68-year-old female was admitted for chest pain rule out acute coronary syndromes cardiology evaluated the patient cleared for discharge. Patient will be discharged on nonsteroidal anti-inflammatory educations and GI prophylaxis. She has a thyroid nodule with normal TSH patient will need ultrasound of the thyroi d. Patient also has a lung nodule for which she'll need a repeat CAT scan of the chest in about 6 months. Patient will be discharged today to follow with primary care patient Dr. Nixon in about 3-5 days. PHYSICAL EXAMINATION: GENERAL: The patient is alert and oriented x3, not in any acute distress. Well developed, well nourished. HEENT: Pupils are round and equally reacting to light. EOMI. No scleral icterus. No conjunctival pallor. Normocephalic, atraumatic. No pharyngeal erythema. No thyromegaly. CARDIOVASCULAR: S1 and S2 present. No murmurs, rubs, or gallops. PULMONARY: Chest is clear to auscultation, no wheezing or crackles. ABDOMEN: Soft, nontender, nondistended, normoactive bowel sounds. No palpable organomegaly. MUSCULOSKELETAL: No joint swelling or deformity. EXTREMITIES: No cyanosis, clubbing, or pedal edema. NEUROLOGICAL: Gross neurological examination did not reveal any focal deficits. SKIN: No rashes. Rest of the chronic medical problems and has position course please refer to my dictation of H&P and from yesterday Patient Condition at Discharge: Good Plan - Discharge Summary Discharge Rx Participant: No New Discharge Prescriptions: New Ibuprofen [Motrin] 400 mg PO Q6HR PRN #30 tab PRN Reason: Pain Ranitidine HCl [Zantac] 150 mg PO BID #30 tab Continue Atenolol [Tenormin] 50 mg PO BID metFORMIN HCL 1,000 mg PO BID glipiZIDE [Glucotrol] 5 mg PO AC-BID Atorvastatin [Lipitor] 40 mg PO DAILY Insulin Degludec [Tresiba Flextouch U-100] 20 units SQ DAILY Discontinued amLODIPine BES/OLMESARTAN MED [amLODIPine BES/OLMESARTAN MED 5-20 mg] 1 tab PO BID Discharge Medication List Atenolol [Tenormin] 50 mg PO BID 08/17/18 [History] Atorvastatin [Lipitor] 40 mg PO DAILY 08/17/18 [History] glipiZIDE [Glucotrol] 5 mg PO AC-BID 08/17/18 [History] metFORMIN HCL 1,000 mg PO BID 08/17/18 [History] Insulin Degludec [Tresiba Flextouch U-100] 20 units SQ DAILY 12/18/18 [History] Ibuprofen [Motrin] 400 mg PO Q6HR PRN #30 tab 12/19/18 [Rx] Ranitidine HCl [Zantac] 150 mg PO BID #30 tab 12/19/18 [Rx] Follow up Appointment(s)/Referral(s): Vishal Nixon DO [Primary Care Provider] - 3 Days Discharge Disposition: HOME SELF-CARE
== END 2018-12-19 13:45 | disposition home or self-care (01) ==
LOC: EC 21:50 → 1SOBS 12-18 01:07
PROVIDERS: ADMIT Hospitalist; ATTEND Hospitalist
DX: R07.89 Other chest pain (principal); R07.81 Pleurodynia; I10 Essential (primary) hypertension; E78.5 Hyperlipidemia, unspecified; E11.9 Type 2 diabetes mellitus without complications; R91.1 Solitary pulmonary nodule; E04.1 Nontoxic single thyroid nodule; M47.812 Spondylosis without myelopathy or radiculopathy, cervical region; M47.814 Spondylosis without myelopathy or radiculopathy, thoracic region; I35.0 Nonrheumatic aortic (valve) stenosis; Z79.4 Long term (current) use of insulin; Z79.899 Other long term (current) drug therapy; Z85.51 Personal history of malignant neoplasm of bladder; Z92.21 Personal history of antineoplastic chemotherapy; Z87.891 Personal history of nicotine dependence; Z90.710 Acquired absence of both cervix and uterus; Z98.42 Cataract extraction status, left eye; Z98.41 Cataract extraction status, right eye
CPT/HCPCS: 96366 ×2; 96376 ×3; 96361; 96365; 96375; 99285; 36415; 93005; 93306; 80061; 80053; 84443; 82150; 82550; 83605; 83690; 84484 ×2; 85025; 85049 ×2; 85610; 85730 ×3; 72070; 72052; 71275; 74177; G0378 ×2; J2270 ×3; J1644 ×2; Q9967

== ENCOUNTER → 2019-06-24 | Outpatient (CLI) | payer BC, MEDICARE ==
--- NOTE | 2019-06-24 11:06 | US ---
EXAMINATION TYPE: US thyroid st tissue head/neck DATE OF EXAM: 06/24/2019 COMPARISON: NONE CLINICAL HISTORY: E04.1 Thyroid nodule. GLAND SIZE: Right Lobe: 4.4 x 1.9 x 1.5 cm Overall Parenchyma: heterogenous Left Lobe: 4.0 x 1.3 x 1.4 cm Overall Parenchyma: heterogeneous Isthmus Thickness: 0.1 cm NODULES RIGHT: # of nodules measured on right: 1. 1.2 X 0.8 x 0.8 cm isoechoic solid nodule at the upper pole with well-defined margins. This no dule is wider than tall and shows intranodular vascularity. No prior 2. 1.1 X 0.6 x 1.0 cm echogenic solid nodule at the mid pole with well-defined margins. This nodule is wider than tall and shows intranodular vascularity. No Prior LEFT: # of nodules measured on left: 0 ISTHMUS: # of nodules measured in the isthmus: 0 Bilateral neck scanned, no evidence of lymphadenopathy. Subcentimeter calcifications noted. IMPRESSION: There are 2 right thyroid nodules having characteristics of TI-RADS 3- Mildly Suspicious: FNA if ? 2.5 cm; Follow if ? 1.5 cm.
== END ==
LOC: RADUSWWP 09:25
PROVIDERS: ATTEND Family Medicine
DX: E04.2 Nontoxic multinodular goiter (principal)
CPT/HCPCS: 36415; 76536; 82565; 84520

== ENCOUNTER → 2019-07-13 | Outpatient (CLI) | payer BC, MEDICARE ==
--- NOTE | 2019-07-13 09:12 | CT ---
EXAMINATION TYPE: CT chest wo con DATE OF EXAM: 07/13/2019 COMPARISON: 12/18/2018 HISTORY: Pulmonary nodule CT DLP: 362.[address] of the chest was performed with lung and mediastinal window settings submitted. The la ck of contrast limits evaluation of the vascular, mediastinal and parenchymal structures including th e upper abdomen. LUNGS: The lungs are clear and free of infiltrate. No atelectasis. No pulmonary nodule or mass is de tected. Recently noted nodule left lower lobe is not reproduced at this time. No pleural effusion. No CT evidence of interstitial lung disease. MEDIASTINUM/LU: Thoracic aorta is of normal caliber with limited evaluation given lack of contrast . Atheromatous changes seen of the thoracic aorta. The heart is not enlarged. No evidence for media stinal mass. No lymph nodes greater than 1cm. UPPER ABDOMEN: No significant abnormality is seen. OTHER: No significant other abnormality. IMPRESSION: 1. No evidence for discrete pulmonary nodule at this time.
== END | disposition home or self-care (01) ==
LOC: RADCTMAIN 07:50
PROVIDERS: ATTEND Family Medicine
DX: E04.1 Nontoxic single thyroid nodule (principal)
CPT/HCPCS: 71250

== ENCOUNTER → 2019-09-26 | Outpatient (CLI) | payer BC, MEDICARE ==
--- NOTE | 2019-09-27 09:53 | MM ---
Reason for exam: screening (asymptomatic). Last mammogram was performed 1 year ago. History: Patient is postmenopausal and has history of other cancer at age 67. Took estrogen for 25 years beginning at age 33. Took progesterone for 25 years beginning at age 33. Physical Findings: A clinical breast exam by your physician is recommended on an annual basis and results should be correlated with mammographic findings. MG Screening Mammo w CAD Bilateral CC and MLO view(s) were taken. Prior study comparison: September 22, 2018, bilateral MG 3d screening mammo w/cad. July 01, 2013, bilateral digital screening mammo w/CAD. There are scattered fibroglandular densities. No significant changes when compared with prior studies. ASSESSMENT: Benign, BI-RAD 2 RECOMMENDATION: Routine screening mammogram of both breasts in 1 year.
== END | disposition home or self-care (01) ==
LOC: RADMAMWWP 10:10
PROVIDERS: ATTEND Family Medicine
DX: Z12.31 Encounter for screening mammogram for malignant neoplasm of breast (principal)
CPT/HCPCS: 77067

== ENCOUNTER → 2020-05-26 | Outpatient (CLI) | payer BC, MEDICARE ==
[2020-05-26 17:13] LABS: Urine Creatinine 139.6 mg/dL
[2020-05-26 17:42] LABS: African American GFR (CKD) 75.6 (60.0-200.0); Albumin 4.3 g/dL (3.80-4.90); Albumin/Globulin Ratio 1.72 (1.60-3.17); Anion Gap 5.5 mmol/L (4.00-12.00); BUN/Creat Ratio 27.78 Ratio (12.00-20.00); Calcium 9.5 mg/dL (8.7-10.3); Carbon Dioxide 26.5 mmol/L (21.6-31.8); Chol/HDL Ratio 2.86; Globulin 2.5 g/dL (1.6-3.3); LDL Cholesterol,Calculated 65.2 mg/dL (0.0-131.0); Non-African American GFR(CKD) 65.2 (60.0-200.0); Potassium 4.7 mmol/L (3.5-5.5); Total Bilirubin 0.5 mg/dL (0.3-1.2); Total Protein 6.8 g/dL (6.2-8.2); VLDL Calculation 16.8 mg/dL (5.00-40.00)
[2020-05-26 23:29] LABS: Hemoglobin A1C 6.9 % (4.0-6.0)
== END | disposition home or self-care (01) ==
LOC: LABMAIN 09:53
PROVIDERS: ATTEND Internal Medicine Endocrinology, Diabetes & Metabolism
DX: E11.65 Type 2 diabetes mellitus with hyperglycemia (principal)
CPT/HCPCS: 36415; 80053; 80061; 82043; 82570; 83036; 84443

== ENCOUNTER → 2021-05-16 | Outpatient (CLI) | payer BC, MEDICARE ==
--- NOTE | 2021-05-16 14:32 | XR ---
EXAMINATION TYPE: XR chest 2V DATE OF EXAM: 05/16/2021 COMPARISON: Correlation CT 07/13/2019 HISTORY: 70-year-old female with cough TECHNIQUE: Frontal and lateral views FINDINGS: The cardiomediastinal silhouette, aorta, and pulmonary vasculature are within normal limits. Lungs an d pleural spaces are clear. IMPRESSION: No acute cardiopulmonary process.
== END | disposition home or self-care (01) ==
LOC: RADXRMAIN 11:40
PROVIDERS: ATTEND Family Medicine
DX: R05.9 Cough, unspecified (principal)
CPT/HCPCS: 71046

== ENCOUNTER 2021-06-03 08:26 | Day surgery (SDC) | payer BC, MEDICARE ==
[2021-05-29 13:52] VITALS: BMI 26.6
[~2021-06-03 08:26] MED LIST changes: -DEXAMETHASONE SOD PHOSPHATE 10 MG/ML 1 ML VIAL IV ONE; -HYDROmorphone 0.5 MG/0.5 ML SYRINGE IVP PRN; +LACTATED RINGERS 1,000 ML IV SCH; -LIDOCAINE 1% 20 ML VIAL (10MG/ML) FOR IV START INTRADERMA PRN; -ONDANSETRON 4 MG/2 ML VIAL IVP ONE; -SCOPOLAMINE 1.5MG/72HR PATCH TRANSDERM ONE; -ceFAZolin IN SWFI 2 GM/20 ML SYRINGE IVP ONE
[2021-06-03 09:01] VITALS: TEMP 97.2
[2021-06-03] MEDS ORDERED: LIDOCAINE 1% (10MG/ML) FOR IV START INTRADERMA ONE (09:03)
[2021-06-03 09:05] LABS: Glucose,Whole Blood 130 mg/dL (75-99)
--- NOTE | 2021-06-03 10:19 | P.GSHP ---
History of Present Illness H&P Date: 06/03/21 Chief Complaint: Dysphagia This a 70-year-old female who presents today for EGD. She has a 3 week history of dysphagia. She states she has trouble swallowing some foods Past Medical History Past Medical History: Cancer, Diabetes Mellitus, Hyperlipidemia, Hypertension Additional Past Medical History / Comment(s): HX BLADDER CANCER-HAD INTRABLADDER CHEMO 09/16/18. History of Any Multi-Drug Resistant Organisms: None Reported Past Surgical History: Bladder Surgery, Hysterectomy, Orthopedic Surgery, Tubal Ligation Additional Past Surgical History / Comment(s): BLADDER CANCER SURGERY, COLONOSCOPY, BILATERAL CATARACT REMOVAL, LEFT KNEE ARTHROSCOPY. Past Anesthesia/Blood Transfusion Reactions: No Reported Reaction Past Psychological History: No Psychological Hx Reported Smoking Status: Former smoker Past Alcohol Use History: None Reported Additional Past Alcohol Use History / Comment(s): QUIT SMOKING 2013. Past Drug Use History: None Reported - Past Family History Sister(s) Family Medical History: Deep Vein Thrombosis (DVT) Son(s) Family Medical History: Deep Vein Thrombosis (DVT) Mother Family Medical History: No Reported History Medications and Allergies Home Medications Medication Instructions Recorded Confirmed Type Atorvastatin [Lipitor] 40 mg PO DAILY 08/17/18 05/29/21 History atenoloL [Tenormin] 50 mg PO BID 08/17/18 05/29/21 History glipiZIDE [Glucotrol] 5 mg PO QAM 08/17/18 05/29/21 History metFORMIN HCL [Glucophage] 1,000 mg PO BID 08/17/18 05/29/21 History Insulin Degludec [Tresiba 20 units SQ HS 12/18/18 06/03/21 History Flextouch U-100 Pen] Ranitidine HCl [Zantac] 150 mg PO BID #30 tab 12/19/18 05/29/21 Rx Calcium Carb/Mag Ox/Zinc Sulf 1 each PO DAILY 05/29/21 05/29/21 History [Ash-Pga-Wqnh 334-134-5 mg Tab] Allergies Allergy/AdvReac Type Severity Reaction Status Date / Time No Known Allergies Allergy Verified 05/29/21 13:41 Surgical - Exam Vital Signs Temp Pulse Resp BP Pulse Ox 97.2 F L 60 18 121/66 97 06/03/21 08:54 06/03/21 08:54 06/03/21 08:54 06/03/21 08:54 06/03/21 08:54 - General well developed, well nourished, no distress - Eyes PERRL - ENT normal pinna - Neck no masses - Respiratory normal expansion - Cardiovascular Rhythm: regular - Abdomen Abdomen: soft, non tender Results - Labs Abnormal Lab Results - Last 24 Hours (Table) 06/03/21 Range/Units 09:00 POC Glucose (mg/dL) 130 H (75-99) mg/dL Assessment and Plan Assessment: Dysphagia. We'll perform EGD.
--- NOTE | 2021-06-03 10:24 | P.OP ---
Date of Procedure: 06/03/21 Preoperative Diagnosis: Dysphagia Postoperative Diagnosis: Antral gastritis Small hiatal hernia Esophagitis for Bertha esophagitis Procedure(s) Performed: EGD Anesthesia: MAC Surgeon: Sudhir Mercedes Pathology: other (Antrum, esophagus) Condition: stable Disposition: PACU Description of Procedure: The patient's placed on the endoscopy table in the lateral position. She received IV sedation. The gastroscope placed oropharynx passed in the esophagus into the stomach. Scope was then placed through the pylorus. The first and second portion of the duodenum appeared normal. Scope was brought back the antrum this. Mildly inflamed. A biopsies performed. The scope was then retroflexed and the remainder of the stomach appeared normal. There was a hiatal hernia noted. The GE junction was at 38 cm. The distal esophagus appeared to have evidence of Bertha esophagitis. This area was biopsied the proximal esophagus appeared normal. Scope withdrawn for patient.
[2021-06-03 10:51] VITALS: BP 115/71; PULSE 65; RESP 20
== END 2021-06-03 10:56 | disposition home or self-care (01) ==
LOC: ORWHC2ENDO 08:26
PROVIDERS: ATTEND Surgery
DX: B37.81 Candidal esophagitis (principal); K44.9 Diaphragmatic hernia without obstruction or gangrene; E11.9 Type 2 diabetes mellitus without complications; E78.5 Hyperlipidemia, unspecified; I10 Essential (primary) hypertension; Z85.51 Personal history of malignant neoplasm of bladder; Z92.21 Personal history of antineoplastic chemotherapy; Z87.891 Personal history of nicotine dependence; Z82.49 Family history of ischemic heart disease and other diseases of the circulatory system; Z79.4 Long term (current) use of insulin; Z79.899 Other long term (current) drug therapy; K29.50 Unspecified chronic gastritis without bleeding
CPT/HCPCS: 43239; 88305; 88312

== ENCOUNTER → 2021-06-04 | Outpatient (CLI) | payer BC, MEDICARE ==
[2021-06-04 19:57] LABS: African American GFR (CKD) 71.9 (60.0-200.0); Albumin 4.3 g/dL (3.8-4.9); Albumin/Globulin Ratio 1.71 (1.60-3.17); Anion Gap 11.6 mmol/L (4.00-12.00); BUN/Creat Ratio 22.08 Ratio (12.00-20.00); Blood Urea Nitrogen 20.6 mg/dL (9.0-27.0); Carbon Dioxide 25.7 mmol/L (21.6-31.8); Chol/HDL Ratio 2.79 Ratio; Globulin 2.5 g/dL (1.6-3.3); HDL Cholesterol 51.6 mg/dL (40.00-60.00); LDL Cholesterol,Calculated 69.6 mg/dL (0.0-131.0); Potassium 4.8 mmol/L (3.5-5.5); Total Bilirubin 0.3 mg/dL (0.30-1.20); Total Protein 6.8 g/dL (6.2-8.2); VLDL Calculation 22.8 mg/dL (5.00-40.00)
[2021-06-05 00:16] LABS: Urine Creatinine 83.7 mg/dL (28.0-217.0)
== END | disposition home or self-care (01) ==
LOC: LABWHC1 11:49
PROVIDERS: ATTEND Internal Medicine Endocrinology, Diabetes & Metabolism
DX: E11.65 Type 2 diabetes mellitus with hyperglycemia (principal)
CPT/HCPCS: 36415; 80053; 80061; 82043; 82570; 83036; 84443

== ENCOUNTER → 2021-08-06 | Outpatient (CLI) | payer BC, MEDICARE ==
--- NOTE | 2021-08-06 14:09 | XR ---
EXAMINATION TYPE: XR wrist complete LT DATE OF EXAM: 08/06/2021 COMPARISON: NONE HISTORY: 70 year-old female left wrist pain TECHNIQUE: 4 views FINDINGS: The radiocarpal and distal radioulnar joint as well as the midcarpal compartment appear intact. Promi nent ulnar sided soft tissue swelling at the wrist. Minimal degenerative spurring at the triscaphe angelica int. No acute fracture, subluxation, dislocation seen. IMPRESSION: Prominent ulnar-sided soft tissue swelling. No acute osseous abnormality seen.
== END | disposition home or self-care (01) ==
LOC: RADXRMAIN 13:11
PROVIDERS: ATTEND Nurse Practitioner Family
DX: M25.532 Pain in left wrist (principal); M79.89 Other specified soft tissue disorders

== ENCOUNTER → 2023-11-25 | Outpatient (CLI) | payer BC, MEDICARE ==
[2023-11-25 19:29] LABS: ALT 19 U/L (8-44); AST 22 U/L (13-35); Albumin 4.7 g/dL (3.8-4.9); Albumin/Globulin Ratio 1.68 Ratio (1.60-3.17); Alkaline Phosphatase 83 U/L (41-126); Calcium 10.5 mg/dL (8.7-10.3); Carbon Dioxide 25.2 mmol/L (21.6-31.8); Chloride 99 mmol/L (96-109); Chol/HDL Ratio 2.73 Ratio; Globulin 2.8 g/dL (1.6-3.3); Glucose 279 mg/dL (70-110); LDL Cholesterol,Calculated 54.6 mg/dL (0.0-131.0); Potassium 4.6 mmol/L (3.5-5.5); Sodium 139 mmol/L (135-145); Total Bilirubin 0.6 mg/dL (0.3-1.2); Total Protein 7.5 g/dL (6.2-8.2)
[2023-11-25 21:34] LABS: Microalbumin Creatinine Ratio <24 mg/g Cr (0-30); Urine Creatinine 50.1 mg/dL (28.0-217.0)
== END | disposition home or self-care (01) ==
LOC: LABWHC1 11:19
PROVIDERS: ATTEND Internal Medicine Endocrinology, Diabetes & Metabolism
DX: E11.65 Type 2 diabetes mellitus with hyperglycemia (principal)
CPT/HCPCS: 36415; 80053; 80061; 82043; 82570; 83036; 84443

== ENCOUNTER 2023-12-24 11:50 | Observation (INO) | payer BC, MEDICARE ==
[2023-12-24] MEDS ORDERED: NITROGLYCERIN SL TABS 0.4 MG TAB SUBLINGUAL PRN ×2 (12:33→14:25)
[2023-12-24] MEDS ORDERED: HEPARIN SODIUM 1,000 UN/ML (10ML VL) IV PRN (12:33)
--- NOTE | 2023-12-24 12:33 | ED ---
Chest Pain HPI - General Chief Complaint: Chest Pain Stated Complaint: Irreg stress test-sent by pcp Time Seen by Provider: 12/24/23 12:05 Source: patient, RN notes reviewed Mode of arrival: ambulatory Limitations: no limitations - History of Present Illness Initial Comments: 73-year-old female presents emergency department with chief complaint of abnorm al stress test. Patient states that she has been having some on and off chest pressure and palpitation type symptoms. She was scheduled for a stress test in which she was sent here from the ER stating that was abnormal. We did receive a phone call from cardiology stating that she will be due for heart cath tomorrow. Patient denies any current complaint of chest pain patient denies abdominal pa in or shortness of breath she does have a history of diabetes hypertension hyperlipidemia. - Related Data Home Medications Medication Instructions Recorded Confirmed Atorvastatin [Lipitor] 40 mg PO DAILY 08/17/18 05/29/21 atenoloL [Tenormin] 50 mg PO BID 08/17/18 05/29/21 glipiZIDE [Glucotrol] 5 mg PO QAM 08/17/18 05/29/21 metFORMIN HCL [Glucophage] 1,000 mg PO BID 08/17/18 05/29/21 Insulin Degludec [Tresiba 20 units SQ HS 12/18/18 06/03/21 Flextouch U-100 Pen] Calcium Carb/Mag Ox/Zinc Sulf 1 each PO DAILY 05/29/21 05/29/21 [Cfk-[id number] 334-134-5 mg Tab] Previous Rx's Medication Instructions Recorded Ranitidine HCl [Zantac] 150 mg PO BID #30 tab 12/19/18 Nystatin 100,000 Unit/ml Susp 5 ml PO QID #250 ml 06/03/21 [Mycostatin Oral Susp] Allergies Allergy/AdvReac Type Severity Reaction Status Date / Time No Known Allergies Allergy Verified 12/24/23 11:56 Review of Systems ROS Statement: Those systems with pertinent positive or pertinent negative responses have been documented in the HPI. ROS Other: All systems not noted in ROS Statement are negative. EKG Findings - EKG Comments: EKG Findings:: EKG performed at 12: 12 sinus rhythm rate of 77 NE 191 QRS 85 QT/QTc 360/391 - EKG Results: EKG: interpreted by LATOYA Past Medical History Past Medical History: Diabetes Mellitus, Hypertension Additional Past Medical History / Comment(s): BLADDER CANCER-HAD INTRABLADDER CHEMO 09/16/18 History of Any Multi-Drug Resistant Organisms: None Reported Past Surgical History: Hysterectomy, Orthopedic Surgery, Tubal Ligation Additional Past Surgical History / Comment(s): BLADDER CANCER SURGERY. COLONOSCOPY. BILAT CATARACT REMOVAL. LT KNEE SCOPE Past Anesthesia/Blood Transfusion Reactions: No Reported Reaction Past Psychological History: No Psychological Hx Reported Smoking Status: Never smoker Past Alcohol Use History: None Reported Past Drug Use History: None Reported - Past Family History Sister(s) Family Medical History: Deep Vein Thrombosis (DVT) Son(s) Family Medical History: Deep Vein Thrombosis (DVT) Mother Family Medical History: No Reported History General Exam Limitations: no limitations General appearance: alert, in no apparent distress Head exam: Present: atraumatic, normocephalic, normal inspection Eye exam: Present: normal appearance, PERRL, EOMI. Absent: scleral icterus, conjunctival injection, periorbital swelling ENT exam: Present: normal exam, mucous membranes moist Neck exam: Present: normal inspection, full ROM. Absent: tenderness, meningismus, lymphadenopathy Respiratory exam: Present: normal lung sounds bilaterally. Absent: respiratory distress, wheezes, rales, rhonchi, stridor Cardiovascular Exam: Present: regular rate, normal rhythm, normal heart sounds. Absent: systolic murmur, diastolic murmur, rubs, gallop, clicks GI/Abdominal exam: Present: soft, normal bowel sounds. Absent: distended, tenderness, guarding, rebound, rigid Course Vital Signs 12/24/23 11:55 Temperature 97.9 F Pulse Rate 80 Respiratory 20 Rate Blood Pressure 184/77 O2 Sat by Pulse 99 Oximetry Chest Pain MDM - MDM Was pt. sent in by a medical professional or institution (, PA, EDITING CLERK, urgent care, hospital, or long term...) When possible be specific @ -Cardiology Did you speak to anyone other than the patient for history (EMS, parent, family, police, friend...)? What history was obtained from this source @ -No Did you review nursing and triage notes (agree or disagree)? Why? @ -I reviewed and agree with nursing and triage notes Were old charts reviewed (outside hosp., previous admission, EMS record, old EKG, old radiological studies, urgent care reports/EKG's, long term records)? Report findings @ -No old charts were reviewed Differential Diagnosis (chest pain, altered mental status, abdominal pain women, abdominal pain men, vaginal bleeding, weakness, fever, dyspnea, syncope, headache, dizziness, GI bleed, back pain, seizure, CVA, palpatations, mental health, musculoskeletal)? @ -Differential Chest Pain: Stable Angina, Unstable Angina, STEMI, NSTEMI Aortic Dissection, Pneumothorax, Musculoskeletal, Esophageal Spasm GERD, Cholecystitis, Pancreatitis, Zoster, this is not meant to be an all-inclusive list. EKG interpreted by me (3pts min.). @ -As above X-rays interpreted by me (1pt min.). @ -Chest x-ray shows no acute cardiopulmonary process CT interpreted by me (1pt min.). @ -None done U/S interpreted by me (1pt. min.). @ -None done What testing was considered but not performed or refused? (CT, X-rays, U/S, labs)? Why? @ -None What meds were considered but not given or refused? Why? @ -None Did you discuss the management of the patient with other professionals (professionals i.e. , PA, EDITING CLERK, lab, RT, psych nurse, social science instructor, manufacturing director, teacher, licensed mortgage loan officer, shoe parts caser)? Give summary @ -[facility] for admission with cardiology consult and heart cath tomorrow Was smoking cessation discussed for >3mins.? @ -No Was critical care preformed (if so, how long)? @ -No Were there social determinants of health that impacted care today? How? (Homelessness, low income, unemployed, alcoholism, drug addiction, transportation, low edu. Level, literacy, decrease access to med. care, shelter, r ehab)? @ -No Was there de-escalation of care discussed even if they declined (Discuss DNR or withdrawal of care, Hospice)? DNR status @ -No What co-morbidities impacted this encounter? (DM, HTN, Smoking, COPD, CAD, Cancer, CVA, ARF, Chemo, Hep., AIDS, mental health diagnosis, sleep apnea, morbid obesity)? @ -None Was patient admitted / discharged? Hospital course, mention meds given and route, prescriptions, significant lab abnormalities, going to OR and other pertinent info. @ -Admitted patient was sent over for heart cath by cardiology after abnormal stress test patient is symptom-free patient was placed on heparin will have cardiac catheterization tomorrow Undiagnosed new problem with uncertain prognosis? @ -No Drug Therapy requiring intensive monitoring for toxicity (Heparin, Nitro, In sulin, Cardizem)? @ -Heparin Were any procedures done? @ -No Diagnosis/symptom? @ -Chest pain Acute, or Chronic, or Acute on Chronic? @ -Acute Uncomplicated (without systemic symptoms) or Complicated (systemic symptoms)? @ -Complicated Side effects of treatment? @ -No Exacerbation, Progression, or Severe Exacerbation? @ -No Poses a threat to life or bodily function? How? (Chest pain, [place], [place], pneumonia, PE, COPD, DKA, ARF, appy, cholecystitis, CVA, Diverticulitis, Homicidal, Suicidal, threat to staff... and all critical care pts) @ -Yes chest pain, possible ACS may cause cardiac arrest Disposition Clinical Impression: Chest pain, Abnormal stress test Disposition: ADMITTED IP TO THIS HOSP Condition: Fair Referrals: Vishal Nixon DO [Primary Care Provider] - 1-2 days Time of Disposition: 12:33
[2023-12-24 12:42] LABS: Basophils % (A) 0 %; Eosinophils # (A) 0.2 k/uL (0-0.7); Eosinophils % (A) 3 %; HCT 41.7 % (34.0-46.0); HGB 13.5 gm/dL (11.4-16.0); Lymphocytes # (A) 1.5 k/uL (1.0-4.8); Lymphocytes % (A) 24 %; MCHC 32.5 g/dL (31.0-37.0); MCV 92.5 fL (80.0-100.0); Mean Platelet Volume 8.6; Monocytes # (A) 0.3 k/uL (0-1.0); Monocytes % (A) 5 %; Neutrophils # (A) 4.2 k/uL (1.3-7.7); Neutrophils % (A) 67 %; Platelet Count 195 k/uL (150-450); RBC 4.51 m/uL (3.80-5.40); RDW 13.4 % (11.5-15.5); WBC 6.2 k/uL (3.8-10.6)
[2023-12-24 12:56] LABS: ALT 26 U/L (4-34); AST 34 U/L (14-36); African American GFR (CKD) 82 (>60 ml/min/1.73 sqM); Albumin 4.3 g/dL (3.5-5.0); Alkaline Phosphatase 89 U/L (38-126); Anion Gap 7 mmol/L; Blood Urea Nitrogen 24 mg/dL (7-17); Calcium 9.4 mg/dL (8.4-10.2); Carbon Dioxide 27 mmol/L (22-30); Chloride 107 mmol/L (98-107); Glucose 148 mg/dL (74-99); Magnesium 1.6 mg/dL (1.6-2.3); Non-African American GFR(CKD) 71 (>60 ml/min/1.73 sqM); Potassium 4.4 mmol/L (3.5-5.1); Sodium 141 mmol/L (137-145); Total Bilirubin 0.8 mg/dL (0.2-1.3); Total Protein 7.2 g/dL (6.3-8.2)
[2023-12-24 12:57] LABS: Partial Thromboplastin Time 22.2 sec (22.0-30.0); Prothrombin Time 10.6 sec (10.0-12.5)
[2023-12-24] MEDS: HEPARIN SODIUM 1,000 UN/ML (10ML VL) IV ONE (13:20)
[2023-12-24] MEDS: HEPARIN SOD,PORK IN 0.45% NACL 25,000 UNIT in 0.45% NACL 1 250ML.BAG IV SCH (13:21)
[2023-12-24] MEDS ORDERED: ALPRAZolam 0.25 MG TAB PO PRN (14:25)
[2023-12-24] MEDS ORDERED: ALPRAZolam 0.5 MG TAB PO PRN (14:25)
--- NOTE | 2023-12-24 14:52 | P.CRDCN ---
History of Present Illness Consult date: 12/24/23 Consult reason: chest pain History of present illness: History of present illness: This is a 73-year-old female with no previous cardiac history and does not follow with a textile engraver. Patient was sent into the hospital for outpatient exercise stress test by her PCP, Dr. Nixon. Patient was found to have ST depression, chest pressure and shortness of breath during the testing. ST changes did return to normal. She was evaluated by Dr. Florian in the stress lab and recommended that patient undergo cardiac catheterization which she is in a greement to move forward with. Patient was sent to the emergency center to be registered and admitted through the ER. Patient states that the reason she is undergoing the stress test is that she has been having chest pain and it seems to be happening with exertion. She also has shortness of breath at the same time. She does have family history of coronary artery disease. She is a non- smoker. EKG sinus rhythm with nonspecific T wave abnormalities. Hemoglobin 13.5. Sodium 141, potassium 4.4, BUN 24 creatinine 0.82. Troponin negative x 1. Home cardiac medications: Amlodipine/benazepril 5-40 mg 1 daily, atenolol 50 mg twice daily, atorvastatin 40 mg at bedtime, Lasix 20 mg daily, also on metformin 1000 mg twice daily Review Of Systems: At the time of my exam: CONSTITUTIONAL: Denies fever or chills. HEENT: Denies blurred vision, vision changes, or eye pain. Denies hemoptysis CARDIOVASCULAR: Denies chest pain. Denies orthopnea. Denies PND. Denies palpitations RESPIRATORY: Denies shortness of breath. GASTROINTESTINAL: Denies abdominal pain. Denies nausea or vomiting. HEMATOLOGIC: Denies bleeding disorders. GENITOURINARY: Denies any blood in urine. SKIN: Denies pruitis. Denies rash. Physical examination: Gen: This is a 73-year-old female in no acute distress VS: reviewed, blood pressure 184/77, heart rate 80, pulse ox 99% on room air. HEENT: Head is atraumatic, normocephalic. Pupils equal, round. Sclerae is anicteric. NECK: Supple. No JVD. LUNGS: Clear to auscultation. No wheezes or rhonchi. No intercostal retractions. HEART: Regular rate and rhythm. Systolic murmur. ABDOMEN: Soft No tenderness. EXTREMITIES: No pedal edema. No calf tenderness. NEUROLOGICAL: Patient is awake, alert and oriented x3. Assessment: Abnormal exercise stress test Exertional chest pressure and shortness of breath Hypertension Hyperlipidemia Diabetes mellitus type 2 Plan: Resume patient's home cardiac medications Continue patient on heparin drip Start patient on aspirin Schedule patient for cardiac catheterization tomorrow with Dr. Florian Obtain 2-D echocardiogram and Doppler study to assess cardiac structure and function Further recommendations to follow based upon clinical course Thank you kindly for this consultation. Nurse practitioner note has been reviewed, I agree with documented findings and plan of care. Patient was seen and examined. Past Medical History Past Medical History: Diabetes Mellitus, Hypertension Additional Past Medical History / Comment(s): BLADDER CANCER-HAD INTRABLADDER CHEMO 09/16/18 History of Any Multi-Drug Resistant Organisms: None Reported Past Surgical History: Hysterectomy, Orthopedic Surgery, Tubal Ligation Additional Past Surgical History / Comment(s): BLADDER CANCER SURGERY. COLONOSCOPY. BILAT CATARACT REMOVAL. LT KNEE SCOPE Past Anesthesia/Blood Transfusion Reactions: No Reported Reaction Past Psychological History: No Psychological Hx Reported Smoking Status: Never smoker Past Alcohol Use History: None Reported Past Drug Use History: None Reported - Past Family History Sister(s) Family Medical History: Deep Vein Thrombosis (DVT) Son(s) Family Medical History: Deep Vein Thrombosis (DVT) Mother Family Medical History: No Reported History Medications and Allergies Home Medications Medication Instructions Recorded Confirmed Type Atorvastatin [Lipitor] 40 mg PO HS 08/17/18 12/24/23 History atenoloL [Tenormin] 50 mg PO BID 08/17/18 12/24/23 History glipiZIDE [Glucotrol] 5 mg PO BID 08/17/18 12/24/23 History metFORMIN HCL [Glucophage] 1,000 mg PO BID 08/17/18 12/24/23 History Baclofen 10 mg PO BID PRN 12/24/23 12/24/23 History Dulaglutide [Trulicity] 3 mg SQ MUHAMMAD 12/24/23 12/24/23 History Furosemide [Lasix] 20 mg PO DAILY 12/24/23 12/24/23 History amLODIPine BESYLATE/BENAZEPRIL 1 cap PO DAILY 12/24/23 12/24/23 History [amLODIPine BESYLATE/BENAZEPRIL 5-40 mg] Allergies Allergy/AdvReac Type Severity Reaction Status Date / Time No Known Allergies Allergy Verified 12/24/23 13:36 Physical Exam Vitals: Vital Signs Temp Pulse Resp BP Pulse Ox 12/24/23 11:55 97.9 F 80 20 184/77 99 Intake and Output 12/23/23 12/24/23 12/24/23 22:59 06:59 14:59 Other: Weight 75.75 kg Results 12/24/23 12:35 12/24/23 12:35 Intake and Output 12/23/23 12/24/23 12/24/23 22:59 06:59 14:59 Other: Weight 75.75 kg Patient Weight 12/25/23 06:59 Weight 75.75 kg
--- NOTE | 2023-12-24 16:21 | XR ---
EXAMINATION TYPE: XR chest 2V DATE OF EXAM: 12/24/2023 COMPARISON: 05/16/2021 HISTORY: 73-year-old female with chest pain TECHNIQUE: PA and lateral views FINDINGS: The cardiomediastinal silhouette, aorta, and pulmonary vasculature are within normal limits. Lungs an d pleural spaces are clear. IMPRESSION: No acute cardiopulmonary process.
[2023-12-24 19:25] VITALS: RESP 16
[2023-12-24] MEDS: atenoloL 50 MG TAB PO SCH (22:32)
[2023-12-24] MEDS: ATORVASTATIN 40 MG TAB PO SCH (22:32)
[2023-12-24] MEDS: glipiZIDE 5 MG TAB PO SCH (22:32)
[2023-12-24] MEDS: SODIUM CHLORIDE 0.9% 1,000 ML IV SCH (23:30)
--- NOTE | 2023-12-25 04:02 | P.HPIM ---
History of Present Illness Patient is a pleasant 73 years old female with past medical history of diabetes mellitus hypertension and urinary bladder cancer He went for routine checkup with her chemical pumper who recommended that she undergo stress test because she has been having chest pain which she describes as pressure on and off few weeks. Mild in the chest. She had abnormal stress test with her chemical pumper today and she was referred to the hospital Currently patient with no chest pain dyspnea no change in urine or bowel habits Vitals stable Antibiotic stable, she has unremarkable labs of CBC CMP, INR 1.0 EKG showing sinus rhythm at [address]-T changes She is currently on heparin drip and aspirin 325 mg Review of Systems Review of systems CONSTITUTIONAL: No fever, no malaise, no fatigue. HEENT: No recent visual problems or hearing problems. Denied any sore throat. CARDIOVASCULAR: No orthopnea, PND, no palpitations, no syncope. PULMONARY: No shortness of breath, no cough, no hemoptysis. GASTROINTESTINAL: No diarrhea, no nausea, no vomiting, no abdominal pain. Normoactive bowel sounds. NEUROLOGICAL: No headaches, no weakness, no numbness. HEMATOLOGICAL: Denies any bleeding or petechiae. GENITOURINARY: Denies any burning micturition, frequency, or urgency. MUSCULOSKELETAL/RHEUMATOLOGICAL: Denies any joint pain, swelling, or any muscle pain. ENDOCRINE: Denies any polyuria or polydipsia. Past Medical History Past Medical History: Diabetes Mellitus, Hypertension Additional Past Medical History / Comment(s): BLADDER CANCER-HAD INTRABLADDER CHEMO 09/16/18 History of Any Multi-Drug Resistant Organisms: None Reported Past Surgical History: Hysterectomy, Orthopedic Surgery, Tubal Ligation Additional Past Surgical History / Comment(s): BLADDER CANCER SURGERY. COLONOSCOPY. BILAT CATARACT REMOVAL. LT KNEE SCOPE Past Anesthesia/Blood Transfusion Reactions: No Reported Reaction Past Psychological History: No Psychological Hx Reported Smoking Status: Never smoker Past Alcohol Use History: None Reported Past Drug Use History: None Reported - Past Family History Sister(s) Family Medical History: Deep Vein Thrombosis (DVT) Son(s) Family Medical History: Deep Vein Thrombosis (DVT) Mother Family Medical History: No Reported History Medications and Allergies Home Medications Medication Instructions Recorded Confirmed Type Atorvastatin [Lipitor] 40 mg PO HS 08/17/18 12/24/23 History atenoloL [Tenormin] 50 mg PO BID 08/17/18 12/24/23 History glipiZIDE [Glucotrol] 5 mg PO BID 08/17/18 12/24/23 History metFORMIN HCL [Glucophage] 1,000 mg PO BID 08/17/18 12/24/23 History Baclofen 10 mg PO BID PRN 12/24/23 12/24/23 History Dulaglutide [Trulicity] 3 mg SQ MUHAMMAD 12/24/23 12/24/23 History Furosemide [Lasix] 20 mg PO DAILY 12/24/23 12/24/23 History amLODIPine BESYLATE/BENAZEPRIL 1 cap PO DAILY 12/24/23 12/24/23 History [amLODIPine BESYLATE/BENAZEPRIL 5-40 mg] Allergies Allergy/AdvReac Type Severity Reaction Status Date / Time No Known Allergies Allergy Verified 12/24/23 13:36 Physical Exam Vitals: Vital Signs Temp Pulse Resp BP Pulse Ox 12/24/23 11:55 97.9 F 80 20 184/77 99 Intake and Output 12/24/23 12/24/23 12/24/23 06:59 14:59 22:59 Other: Weight 75.75 kg GENERAL: The patient is alert and oriented x3, not in any acute distress. Well developed, well nourished. HEENT: Pupils are round and equally reacting to light. EOMI. No scleral icterus. No conjunctival pallor. Normocephalic, atraumatic. No pharyngeal erythema. No thyromegaly. CARDIOVASCULAR: S1 and S2 present. No murmurs, rubs, or gallops. PULMONARY: Chest is clear to auscultation, no wheezing , no crackles. ABDOMEN: Soft, nontender, nondistended, normoactive bowel sounds. No palpable organomegaly. MUSCULOSKELETAL: No joint swelling or deformity. EXTREMITIES: No cyanosis, clubbing, or pedal edema. NEUROLOGICAL: Gross neurological examination did not reveal any focal deficits. SKIN: No rashes. no petechiae. Results CBC & Chem 7: 12/24/23 12:35 12/24/23 12:35 Labs: Abnormal Lab Results - Last 24 Hours (Table) 12/24/23 Range/Units 12:35 BUN 24 H (7-17) mg/dL Glucose 148 H (74-99) mg/dL Assessment and Plan Assessment: Chest pressures with abnormal stress test, rule out acute coronary syndrome Hypertension Diabetes mellitus History of urinary bladder cancer Plan: Continue with heparin drip Continue with aspirin Cardiology consult DVT and GI prophylaxis Prognosis is guarded
[2023-12-25] MEDS ORDERED: polyethylene glycoL 3350 17 GM POWD.PACK PO PRN (04:06)
[2023-12-25 04:15] VITALS: TEMP 98
[2023-12-25] MEDS: ASPIRIN 81 MG PO SCH (06:15)
[2023-12-25] MEDS: ASPIRIN 325 MG TAB PO ONE (06:19)
[2023-12-25] MEDS: lisinopriL 20 MG TAB PO SCH (06:20)
[2023-12-25] MEDS: ATORVASTATIN 80 MG TAB PO ONE (06:20)
[2023-12-25] MEDS: amLODIPine 5 MG TAB PO SCH (06:20)
[2023-12-25 06:23] LABS: Glucose,Whole Blood 132 mg/dL (70-110)
[2023-12-25] MEDS ORDERED: HEPARIN SODIUM,PORCINE 10,000 UNIT in SODIUM CHLORIDE 0.9% 1,000 ML IRRIGATION PRN (07:00)
[2023-12-25] MEDS ORDERED: HEPARIN SODIUM,PORCINE (1 ML) 2,500 UNIT in SODIUM CHLORIDE 0.9% 250 ML IRRIGATION PRN (07:00)
--- NOTE | 2023-12-25 07:04 | CA ---
Transthoracic Echo Report Name: Cindy Us Age: 73 Gender: F : 1950 Exam Date: 12/24/2023 17:01 Exam Location: [place] [facility] Ht (in): 67 Wt (lb): 167 Ordering Physician: Alesia Gomez Attending/Referring Phys: [id number], Patricia Break Out Worker Latanya Fonseca RDCS Procedure CPT: Indications: LVF Cardiac Hx: Technical Quality: Good Contrast 1: Total Dose (mL): Contrast 2: Total Dose (mL): MEASUREMENTS (Male / Female) Normal Values 2D ECHO LV Diastolic Diameter PLAX 3.7 cm 4.2 - 5.9 / 3.9 - 5.3 cm LV Systolic Diameter PLAX 2.5 cm IVS Diastolic Thickness 1.0 cm 0.6 - 1.0 / 0.6 - 0.9 cm LVPW Diastolic Thickness 0.9 cm 0.6 - 1.0 / 0.6 - 0.9 cm LV Relative Wall Thickness 0.5 RV Internal Dim ED PLAX 2.9 cm LA Systolic Diameter LX 3.7 cm 3.0 - 4.0 / 2.7 - 3.8 cm LV Diastolic Volume MOD 4C 109.5 cm??? LV Systolic Volume MOD 4C 33.1 cm??? LV Ejection Fraction MOD 4C 69.8 % LV Cardiac Index MOD 4C 2769.0 cm???/min???m??? LV Diastolic Length 4C 7.7 cm LV Systolic Length 4C 5.7 cm LV Diastolic Volume MOD 2C 86.0 cm??? LV Systolic Volume MOD 2C 26.5 cm??? LV Ejection Fraction MOD 2C 69.2 % LV Cardiac Index MOD 2C 2155.1 cm???/min???m??? LV Diastolic Length 2C 7.7 cm LV Systolic Length 2C 5.6 cm LA Volume 56.7 cm??? 18 - 58 / 22 - 52 cm??? LA Volume Index 29.7 cm???/m??? 16 - 28 cm???/m??? M-MODE Aortic Root Diameter MM 2.7 cm MV E Point Septal Separation 0.2 cm AV Cusp Separation MM 2.0 cm DOPPLER AV Peak Velocity 187.2 cm/s AV Peak Gradient 14.0 mmHg MV Area PHT 3.5 cm??? Mitral E Point Velocity 105.2 cm/s Mitral A Point Velocity 100.4 cm/s Mitral E to A Ratio 1.0 MV Deceleration Time 216.9 ms TR Peak Velocity 240.5 cm/s TR Peak Gradient 23.1 mmHg Right Ventricular Systolic Press 28.1 mmHg PV Peak Velocity 184.8 cm/s PV Peak Gradient 13.7 mmHg PI Peak Gradient 13.2 mmHg FINDINGS Left Ventricle Left ventricular ejection fraction is estimated at 55-60 %. Small left ventricular cavity. Left ventricular cavity size normal. No obvious regional wall motion abnormalities. Right Ventricle Normal right ventricular size. Unable to estimate the right ventricular systolic pressure. Right Atrium Normal right atrial size. No right atrial thrombus or mass seen. Left Atrium Mildly increased left atrial volume. Mitral Valve Structurally normal mitral valve. No mitral stenosis, regurgitation or prolapse. Aortic Valve Trileaflet aortic valve. No aortic valve stenosis or regurgitation. Tricuspid Valve Structurally normal tricuspid valve. No tricuspid stenosis, or prolapse.mild tricuspid regurgitation. Pulmonic Valve Structurally normal pulmonic valve. Trace pulmonic regurgitation. Pericardium No pericardial or pleural effusion. Aorta Normal size aortic root and proximal ascending aorta. CONCLUSIONS 1. Normal left ventricle size and systolic function 2. Mild tricuspid regurgitation Previewed by: Dr. Carlos Florian MD (Electronically Signed) Final Date: 25 Dec 2023 07:03
[2023-12-25] MEDS ORDERED: ASPIRIN 325 MG TAB PO SCH (09:00)
[2023-12-25] MEDS: LIDOCAINE 1% INJ 10MG/ML (20 ML MDV) SQ ONE (09:07)
[2023-12-25] MEDS: MIDAZOLAM 2 MG/2 ML VIAL IVP ONE ×2 (09:09→09:14)
[2023-12-25] MEDS: fentaNYL (PF) 50 MCG/1 ML VIAL IVP ONE (09:09)
[2023-12-25] MEDS: HEPARIN SODIUM 1,000 UN/ML (10ML VL) IVP ONE ×3 (09:14→09:31)
[2023-12-25] MEDS: NITROGLYCERIN 1000MCG/10ML SYRINGE INTRACORON ONE (09:27)
[2023-12-25] MEDS: CLOPIDOGREL 75 MG TAB PO ONE (09:32)
[2023-12-25] MEDS: IOPAMIDOL-370 100ML BTL INTRATHECA ONE (10:01)
[2023-12-25] MEDS: SODIUM CHLORIDE 0.9% 1,000 ML IV ONE (10:02)
[2023-12-25] MEDS ORDERED: ZOLPIDEM 5 MG TAB PO PRN (10:16)
[2023-12-25] MEDS ORDERED: MAG HYDROX/AL HYDROX/SIMETH 30 ML CUP PO PRN (10:16)
[2023-12-25] MEDS ORDERED: NITROGLYCERIN SL TABS 0.4 MG TAB SUBLINGUAL PRN (10:16)
[2023-12-25] MEDS ORDERED: ATROPINE SULFATE 0.1 MG/ML 10ML SYRINGE IV PRN (10:16)
[2023-12-25] MEDS ORDERED: RX INFO: IV CONTRAST WAS GIVEN 1 EACH MISC MISCELLANE PRN (10:16)
--- NOTE | 2023-12-25 10:24 | P.CARDCATH ---
Date of Procedure: 12/25/23 Description of Procedure: Cardiac Catheterization: The patient is a 73-year-old female with known history of hypertension, hyperlipidemia and diabetes who presented with chest discomfort and had an abnormal stress test. Recommendations were made regarding cardiac catheterization, the risks and the complications were discussed with the patient who is in full understanding and agreement. Procedure Description: Patient was brought to laboratory animal facility supervisor in fasting semi-sedated state after receiving Fentanyl and Benadryl achieiving moderate conscious sedated state. Using Xylocaine Anesthesia and modified Seldinger technique, a 6-Kyrgyz sheath was introduced in the right radial artery . Subsequently, selective coronary angiography was performed using a 5-Kyrgyz 3.5 bend Shanon catheter. Multiple views of the coronary artery including hemiaxial views were obtained. The 5 [place]z pigtail catheter was used to cross the aortic valve and LVEDP was calculated. PCI: After removing the catheters a 6 [place] FR 4 guiding catheter was introduced and after cannulating the right coronary ostium and Omni Doppler flow wire was advanced and positioned in the distal RCA. iFR was measured at 0.86. Subsequently a 2.5 x 12 mm NC trek balloon was advanced and 2 inflations at 8 otf were done. After removing the balloon a [employer] [place] eye IVUS catheter was introduced and imaging were obtained and revealed mild calcification of the lesion with a landing zone diameter of 3.5 to 3.75 mm. After removing the catheter a 3.5 x 18 mm Xience marilee point stent was deployed at 16 otf. Repeat IVUS imaging was performed and subsequently a 4.0 x 12 mm NC trek balloon was advanced and 2 inflation at 10 otf were done. Repeat IFR was measured at 0.99. After the last inflation the wire was removed and images revealed stable successful stenting. Following that, catheter and sheath were removed. Hemostasis was obtained with deployment of vascular band . There was no immediate complication. Patient was returned to room in stable condition. Of note, the patient received a total of 6000 units of intravenous heparin as well as intra-arterial verapamil. Her ACT was monitored. She received an oral loading dose of clopidogrel. She had chest discomfort with the inflations that resolved at the end of the procedure. Findings: Fluoroscopy: Calcifications of the RCA was noted. Left main: This is a large size vessel, bifurcating into LAD and left circumflex, left main has no obstructive disease LAD: This is a large size vessel, reaching to the apex, giving rise to a large diagonal branch proximally, the LAD and its branches have no significant obstructive disease. Left circumflex: This is a large nondominant vessel giving rise to a large obtuse marginal branch. After the takeoff of the obtuse marginal branch there is a 90% stenosis the vessel beyond that is small in caliber. There is mild obstructive disease in the proximal left circumflex of 20%. RCA: This is a large dominant vessel, bifurcating into PDA and PLV. The mid distal segment of the RCA has an eccentric 70 to 80% stenosis, the rest of the vessel has intimal disease with no high-grade stenosis. Left Ventriculogram: Not performed Hemodynamics: There was no gradient across the aortic valve, LVEDP was 12-16 mmHg Conclusion: 1. Calcified coronary arteries 2. 70 to 80% stenosis in the mid to distal RCA with hemodynamically significant lesion by IFR 3. No significant disease in the LAD 4. Successful stenting of the distal RCA with reduction of stenosis from 70 to 80% down to 0% with IVUS imaging and KURT-3 flow. Recommendations: The patient will continue on dual antiplatelet treatment with aspirin and clopidogrel for 6 months without any interruption in addition to aggressive coronary risk modifications, attempting to maintain LDL below 70 mg/dL. The findings and the recommendations were discussed with the patient and the family and they were in full understanding and agreement. Duration of sedation is 50 minutes.
[2023-12-25 11:42] LABS: Glucose,Whole Blood 214 mg/dL (70-110)
[2023-12-25 13:24] VITALS: BMI 26.2
[2023-12-25] MEDS: SODIUM CHLORIDE 0.9% 1,000 ML in EMPTY BAG 1 BAG IV SCH (14:03)
[2023-12-25 14:11] LABS: African American GFR (CKD) >90 (>60 ml/min/1.73 sqM); Anion Gap 7 mmol/L; Blood Urea Nitrogen 14 mg/dL (7-17); Calcium 8.6 mg/dL (8.4-10.2); Carbon Dioxide 23 mmol/L (22-30); Chloride 109 mmol/L (98-107); Glucose 331 mg/dL (74-99); Non-African American GFR(CKD) 86 (>60 ml/min/1.73 sqM); Potassium 4.2 mmol/L (3.5-5.1); Sodium 139 mmol/L (137-145)
[2023-12-25 14:21] VITALS: PULSE 78
[2023-12-25 16:51] LABS: Glucose,Whole Blood 155 mg/dL (70-110)
[2023-12-25 18:30] VITALS: BP 140/76
[2023-12-25 20:44] LABS: Chol/HDL Ratio 2.53 Ratio; LDL Cholesterol,Calculated 36.8 mg/dL (0.0-131.0)
[2023-12-26] MEDS ORDERED: CLOPIDOGREL 75 MG TAB PO SCH (09:00)
--- NOTE | 2024-01-08 16:54 | P.DS ---
Providers Date of admission: 12/24/23 12:37 Attending physician: Aleah Dean Consults: 12/24/23 12:33 Consult Physician Urgent Consulting Provider: Carlos Florian Consult Reason/Comments: chest pain Do you want consulting provider notified?: Yes 12/25/23 10:16 Consult Physician Routine Consulting Provider: [facility] Consult Reason/Comments: Post Interventional Patient Do you want consulting provider notified?: Already Contacted Primary care physician: Vishal Nixon [place] Hospital Course: Diagnoses: Chest pressures with abnormal stress test, rule out acute coronary syndrome. Secondary to coronary artery disease of RCA s/p successful PCI 2 oh distal RCA Hypertension Diabetes mellitus History of urinary bladder cancer Hospital course: Patient is a pleasant 73 years old female with past medical history of diabetes mellitus hypertension and urinary bladder cancer He went for routine checkup with her truck hop who recommended that she undergo stress test because she has been having chest pain which she describes as pressure on and off few weeks. Mild in the chest. She had abnormal stress test with her truck hop today and she was referred to the hospital Currently patient with no chest pain dyspnea no change in urine or bowel habits Patient evaluated by cardiology team and she underwent cardiac cath showing 70 to 80% stenosis of the mid to distal RCA. Patient s/p successful stenting of the distal RCA with improvement and resolution of the structure. After the procedure patient tolerated well, no chest pain no dyspnea no other complaints Patient was started on dual antiplatelet therapy with aspirin and Plavix. Risk benefits explained to the patient extensively and she verbalized understanding and acceptance Patient denies any other complaint and she is going to go home Patient was cleared for discharge by truck hop Problems and management plan were discussed with the patient and he verbalized understanding and acceptance Patient was found stable and can be discharged home in guarded prognosis however he needs follow-up as an outpatient. Patient was instructed to follow up with PCP Dr. Nixon within one week and patient agrees Patient was instructed to follow-up with truck hop in 1 week after discharge and she agrees Physical exam Gen: patient is a AAOx3, no distress CVS: S1-S2, RRR, no murmur Lungs: B/L CTA, no wheezing Abdomen: soft, no distention, no tenderness, positive bowel sounds Extremity: no leg edema or induration Time spent more than 35 minutes Patient Condition at Discharge: Fair Plan - Discharge Summary Discharge Rx Participant: Yes New Discharge Prescriptions: New Aspirin 81 mg PO DAILY tab Clopidogrel [Plavix] 75 mg PO DAILY #90 tab Nitroglycerin Sl Tabs [Nitrostat] 0.4 mg SUBLINGUAL Q5M PRN #25 tab PRN Reason: Chest Pain Continue atenoloL [Tenormin] 50 mg PO BID glipiZIDE [Glucotrol] 5 mg PO BID Atorvastatin [Lipitor] 40 mg PO HS Furosemide [Lasix] 20 mg PO DAILY amLODIPine BESYLATE/BENAZEPRIL [amLODIPine BESYLATE/BENAZEPRIL 5-40 mg] 1 cap PO DAILY Dulaglutide [Trulicity] 3 mg SQ [place] Discontinued metFORMIN HCL [Glucophage] 1,000 mg PO BID Baclofen 10 mg PO BID PRN PRN Reason: Pain Discharge Medication List Atorvastatin [Lipitor] 40 mg PO HS 08/17/18 [History] atenoloL [Tenormin] 50 mg PO BID 08/17/18 [History] glipiZIDE [Glucotrol] 5 mg PO BID 08/17/18 [History] Dulaglutide [Trulicity] 3 mg SQ [place] 12/24/23 [History] Furosemide [Lasix] 20 mg PO DAILY 12/24/23 [History] amLODIPine BESYLATE/BENAZEPRIL [amLODIPine BESYLATE/BENAZEPRIL 5-40 mg] 1 cap PO DAILY 12/24/23 [History] Aspirin 81 mg PO DAILY tab 12/25/23 [Rx] Clopidogrel [Plavix] 75 mg PO DAILY #90 tab 12/25/23 [Rx] Nitroglycerin Sl Tabs [Nitrostat] 0.4 mg SUBLINGUAL Q5M PRN #25 tab 12/25/23 [Rx] Follow up Appointment(s)/Referral(s): Shelli Shabazz, RADHA [Nurse Practitioner] - 1 Week Vishal Nixon DO [Primary Care Provider] - 1-2 days Activity/Diet/Wound Care/Special Instructions: heart healthy diet activity is restricted till you see your doctor we recommend to hold your metformin till you see your doctor in one week Discharge Disposition: HOME SELF-CARE
== END 2023-12-25 18:27 | disposition home or self-care (01) ==
LOC: EC 11:50 → 6NMEDSUR 12:37 → 3SCARD 19:09
PROVIDERS: ADMIT Hospitalist; ATTEND Hospitalist
DX: R07.89 Other chest pain (principal); R94.39 Abnormal result of other cardiovascular function study; R06.02 Shortness of breath; E11.9 Type 2 diabetes mellitus without complications; I10 Essential (primary) hypertension; E78.5 Hyperlipidemia, unspecified; Z85.51 Personal history of malignant neoplasm of bladder; Z92.21 Personal history of antineoplastic chemotherapy; Z79.84 Long term (current) use of oral hypoglycemic drugs; Z79.85 Long-term (current) use of injectable non-insulin antidiabetic drugs; Z79.4 Long term (current) use of insulin; Z79.899 Other long term (current) drug therapy; Z82.49 Family history of ischemic heart disease and other diseases of the circulatory system
CPT/HCPCS: 96374; 99285; 36415; 93005; 93306; 92978; 93458; 93799; 80061; 80053; 80048; 83735; 84484; 85025; 85610; 85730; 71046; G0378 ×3; C9600; C1769 ×4; C1887; C1894; C1753; C1874; C1725 ×2; J2250; J2001; J1644 ×3; Q9967; J3010; J2305

== ENCOUNTER → 2023-12-24 | Outpatient (CLI) | payer BC, MEDICARE ==
--- NOTE | 2023-12-24 13:34 | CA ---
Exercise Stress Test Report Name: Cindy Us Exam Date: 12/24/2023 11:17 Exam Location: [place] [facility] Ht (in): 67 Wt (lb): 167 BSA: 1.87 Ordering Phys: Caesar Masters DO Referring Phys: Leticia Hardin [facility] Technologist: Anderson Rodriguez Age: 73 Gender: F : 1950 Procedure CPT: Indications: I10 HTN ICD-10 Codes: Patient History: Medications: Meds past 24 hrs: Pretest Chest Pain: STRESS TEST Sushant Protocol Exercise Duration (min:sec): 06:[address] Depressions (mm): Angina Score: Rush Score: Resting HR (bpm): 68 Peak HR (bpm): 137 Resting BP (mmHg): 149 / 71 Peak BP (mmHg): 170 / 81 MPHR: 147 Target HR: 125 % MPHR: 93 METS: 7.1 Total Dose: Peak Dose: Atropine: Double Product: 90150 BP Response: Stress Termination: TARGET HR REACHED/MAX EXERTION Stress Symptoms: CHEST PRESSURE Stress Summary: The patient's target heart rate was achieved ECG ANALYSIS Resting ECG: Sinus rhythm. Normal conduction. No arrhythmias. Nonspecific ST-T abnormality. Stress ECG: inferolateral. [address] horizontal change. CONCLUSIONS 1. Average exercise tolerance 2. Chest discomfort during exercise consistent with angina 3. Positive electrocardiographic stress testing with [address] segment depression that resolved in recovery Dr. Carlos Florian MD (Electronically Signed) Final Date: 24 Dec 2023 13:33
== END | disposition home or self-care (01) ==
LOC: RADNMMAIN 10:53
PROVIDERS: ATTEND Family Medicine
DX: R07.89 Other chest pain (principal); I10 Essential (primary) hypertension
CPT/HCPCS: 93017

== ENCOUNTER → 2024-06-11 | Outpatient (CLI) | payer BC, MEDICARE ==
[2024-06-12 08:00] LABS: ALT 17 U/L (8-44); AST 22 U/L (13-35); Albumin 4.4 g/dL (3.8-4.9); Albumin/Globulin Ratio 1.57 Ratio (1.60-3.17); Alkaline Phosphatase 97 U/L (41-126); BUN/Creat Ratio 28.56 Ratio (12.00-20.00); Blood Urea Nitrogen 25.7 mg/dL (9.0-27.0); Calcium 9.8 mg/dL (8.7-10.3); Carbon Dioxide 26.9 mmol/L (21.6-31.8); Chloride 104 mmol/L (96-109); Chol/HDL Ratio 2.79 Ratio; Globulin 2.8 g/dL (1.6-3.3); Glucose 188 mg/dL (70-110); LDL Cholesterol,Calculated 52.6 mg/dL (0.0-131.0); Sodium 143 mmol/L (135-145); Total Bilirubin 0.6 mg/dL (0.3-1.2); Total Protein 7.2 g/dL (6.2-8.2)
[2024-06-12 08:06] LABS: Microalbumin Creatinine Ratio <23 mg/g Cr (0-30); Urine Creatinine 52.7 mg/dL (28.0-217.0)
== END | disposition home or self-care (01) ==
LOC: LABWHC1 10:24
PROVIDERS: ATTEND Internal Medicine Endocrinology, Diabetes & Metabolism
DX: E11.65 Type 2 diabetes mellitus with hyperglycemia (principal)
CPT/HCPCS: 36415; 80053; 80061; 82043; 82570; 83036; 84443